=== PATIENT | female | born 1955 | race Caucasian/White ===

== ENCOUNTER → 2019-10-16 14:44 | Outpatient (CLI) | payer BC, SELFPAY ==
--- NOTE | ~2019-10-16 | MM_ITS ---
EXAMINATION: MM screening [facility] BI w kaylynn HISTORY: Screening mammogram TECHNIQUE: Craniocaudal and mediolateral oblique 3-D tomosynthesis images were obtained and synthetic 2-D images were generated. CAD analysis was submitted and interpreted. COMPARISON: Comparison to multiple prior studies sequentially, with oldest reviewed study dated 12/27. BREAST PARENCHYMAL COMPOSITION: There are scattered areas of fibroglandular density. FINDINGS: There is no evidence of suspicious mass, calcification, or architectural distortion to sugg est malignancy in either breast. There has been no suspicious interval change. IMPRESSION: 1. No mammographic evidence of malignancy. 2. Recommend routine screening mammography in one year. BI-RADS Category 1: Negative Reviewed, dictated and finalized at location A.
== END ==
PROVIDERS: PCP Nurse Practitioner Adult Health; Visit Provider Nurse Practitioner Adult Health
DX: Z12.31 Encounter for screening mammogram for malignant neoplasm of breast (principal)
CPT/HCPCS: 77063; 77067

== ENCOUNTER → 2019-11-07 09:28 | Outpatient (CLI) | payer BC, SELFPAY ==
--- NOTE | ~2019-11-07 | DEXA_ITS ---
Bone Density Report Name: Afia Villatoro Age: 64 Sex: Female Ethnicity: White Date of : 1955 Indication: postmenopausal osteoporosis; monitoring treatment; parental hip fracture; height loss; hysterectomy; Referring Provider: AL, ANUJA Study: Bone densitometry was performed. Exam Date: November 07, 2019 Accession number: [id number] Bone Density: Region BMD T-score Z-score Classification AP Spine (L1-L4) 0.766 -2.6 -0.8 Osteoporosis Femoral Neck (Left) 0.593 -2.3 -0.8 Osteopenia Total Hip (Left) 0.775 -1.4 -0.2 Osteopenia Femoral Neck (Right) 0.567 -2.5 -1.1 Osteoporosis Total Hip (Right) 0.678 -2.2 -1.0 Osteopenia Total Hip Mean 0.727 -1.8 -0.6 Osteopenia World Health Organization criteria for BMD impression classify patients as: Normal (T-score at or above -1.0), Osteopenia (T-score between -1.0 and -2.5), or Osteoporosis (T-score at or below -2.5). 10-year Fracture Risk: FRAX not reported because: Some T-score for Spine Total or Hip Total or Femoral Neck at or below -2.5 Treated for osteoporosis Previous Exams: Region Exam Age BMD T-score BMD Change BMD Change Date g/cm2 vs Baseline vs Previous AP Spine(L1-L4) 11/07/2019 64 0.766 -2.6 0.019 0.013 10/17/2017 62 0.753 -2.7 0.006 -0.008 10/13/2015 60 0.760 -2.6 0.014 0.000 05/17/2013 58 0.760 -2.6 0.013 -0.015 04/22/2011 56 0.775 -2.5 0.028* 0.092* 02/18/2010 55 0.683 -3.3 -0.063* -0.063* 04/19/2007 52 0.747 -2.7 Total Hip(Left) 11/07/2019 64 0.775 -1.4 -0.010 0.000 10/17/2017 62 0.775 -1.4 -0.010 -0.015 10/13/2015 60 0.789 -1.3 0.005 -0.010 05/17/2013 58 0.799 -1.2 0.015 -0.033* 04/22/2011 56 0.832 -0.9 0.047* 0.055* 02/18/2010 55 0.777 -1.3 -0.007 -0.007 04/19/2007 52 0.785 -1.3 Total Hip(Right) 11/07/2019 64 0.678 -2.2 -0.049* -0.056* 10/17/2017 62 0.734 -1.7 0.007 -0.010 10/13/2015 60 0.744 -1.6 0.017 -0.021 05/17/2013 58 0.765 -1.5 0.038* -0.006 04/22/2011 56 0.771 -1.4 0.044* 0.018 02/18/2010 55 0.753 -1.6 0.026 0.026 04/19/2007 52 0.727 -1.8 *Denotes significance at 95% confidence level, LSC for AP Spine = 0.022 g/cm2, LSC for Total Hip = 0.027 g/cm2 Clinical Informatio
== END ==
PROVIDERS: PCP Nurse Practitioner Adult Health; Visit Provider Nurse Practitioner Adult Health
DX: M81.0 Age-related osteoporosis without current pathological fracture (principal); M85.852 Other specified disorders of bone density and structure, left thigh; M85.851 Other specified disorders of bone density and structure, right thigh
CPT/HCPCS: 77080

== ENCOUNTER → 2021-01-08 12:16 | Outpatient (CLI) | payer MEDICARE, OTHER, SELFPAY ==
--- NOTE | ~2021-01-08 | MM_ITS ---
EXAMINATION: MM screening [facility] BI w kaylynn HISTORY: Screening TECHNIQUE: Craniocaudal and mediolateral oblique 3-D tomosynthesis images were obtained and synthetic 2-D images were generated. CAD analysis was submitted and interpreted. COMPARISON: Comparison to multiple prior studies sequentially, with oldest reviewed study dated 10/12. BREAST PARENCHYMAL COMPOSITION: There are scattered areas of fibroglandular density. FINDINGS: There is no evidence of suspicious mass, calcification, or architectural distortion to sugg est malignancy in either breast. There has been no suspicious interval change. IMPRESSION: 1. No mammographic evidence of malignancy. 2. Recommend routine screening mammography in one year. BI-RADS Category 1: Negative Reviewed, dictated and finalized at location A.
== END ==
PROVIDERS: PCP Nurse Practitioner Adult Health; Visit Provider Nurse Practitioner Adult Health
DX: Z12.31 Encounter for screening mammogram for malignant neoplasm of breast (principal)
CPT/HCPCS: 77063; 77067

== ENCOUNTER 2021-04-04 19:00 | Inpatient (IN) | payer MEDICARE, OTHER, SELFPAY ==
--- NOTE | ~2021-04-04 | XR_ITS ---
EXAMINATION: XR chest 2V DATE: 04/04/2021 19:24 INDICATION: Left-sided chest pain TECHNIQUE: PA and lateral views of the chest are obtained. COMPARISON: None available FINDINGS: There is mild atelectasis of the lung bases. There is no pleural effusion or pneumothorax. The cardiomediastinal silhouette is normal. There is moderate thoracic spondylosis. IMPRESSION: 1. No acute cardiopulmonary abnormality. Reviewed, dictated and finalized at location F. RUMENT STERILIZER
--- NOTE | ~2021-04-04 | CT_ITS ---
EXAMINATION: CTA chest PE abdomen DATE: 04/05/2021 14:35 SCOOP MACHINE OPERATOR INDICATION: Elevated d-dimer. Lower chest pain. TECHNIQUE: Computed tomographic angiography (CTA) of the chest and abdomen was performed with 100 mL Omnipaque-350 intravenous contrast. The dose-length product was 573.12 mGy-cm. Maximum intensity proj ection 3D-reconstructions of the aorta and other arteries were constructed by the technologist on a [employer] workstation. Automated exposure control and iterative reconstruction technique were employed. Automated exposure control and iterative reconstruction technique were employed. COMPARISON: CT dated 12/15/2012. FINDINGS: Chest: Cardiomegaly. Small left pleural effusion. There is atherosclerosis of the aorta wit hout evidence for aneurysm or dissection. Small hiatal hernia. Study is technically adequate without evidence for pulmonary embolism. There is patchy linear and airspace consolidation in the lower lobe s and lingula. No endobronchial lesions. No pneumothorax. ABDOMEN: The liver, spleen, pancreas, adrenal glands and kidneys are unremarkable. There is mild bila teral ureterectasis no free air or free fluid. There is mild urothelial enhancement. Cannot excluded ascending urinary tract infection. Gallbladder is present. There is accentuated thoracic kyphosis. IMPRESSION: 1. Patchy bibasilar infiltrates, suspicious for pneumonia versus atelectasis. 2: No evidence for pulmonary embolism. 3: Mild bilateral urothelial enhancement. Consider ascending urinary tract infection in the appropri ate clinical setting. Reviewed, dictated and finalized at location A. P MACHINE OPERATOR IMPRESSION: 1. Patchy bibasilar infiltrates, suspicious for pneumonia versus atelectasis. 2: No evidence for pulmonary embolism. 3: Mild bilateral urothelial enhancement. Consider ascending urinary tract inf ection in the appropriate clinical setting.
--- NOTE | ~2021-04-04 | US_ITS ---
EXAMINATION: US abdomen complete DATE: 04/06/2021 09:51 INDICATION: Right upper quadrant abdominal pain. Right posterior flank pain. TECHNIQUE: Multiple grayscale and Doppler ultrasound images of the abdomen were obtained. COMPARISON: CT 04/05/2021 FINDINGS: The visualized portions of the head and body of the pancreas are normal. The liver is jill l without focal lesion. No liver surface nodularity. There is normal flow in main portal vein. The ga llbladder is normal in size. No gallstones or gallbladder wall thickening. The common duct is normal and measures 2 mm. The kidneys are normal in size. The spleen is normal in size. There is a left pleu ral effusion. Abdominal aorta is normal in caliber. Inferior vena cava is normal. IMPRESSION: 1. Left pleural effusion. Reviewed, dictated and finalized at location B. E OPERATOR IMPRESSION: 1. Left pleural effusion.
--- NOTE | 2021-04-04 19:02 | ECG_ITS ---
Measurements Intervals [place] Rate: 59 P: 43 NE: 168 QRS: 28 QRSD: 86 T: 22 QT: 417 QTc: 414 Interpretive Statements SINUS BRADYCARDIA BORDERLINE ECG Electronically Signed On 04-05-2021 6:08:36 LEAD CASTER HELPER by Brandan Rodriguez D.O.
[2021-04-04 19:04] VITALS: BP 161/88; PULSE 69; RESP 18; TEMP 36.6; O2SAT 100
[2021-04-04 19:22] LABS: Basophils Percent Auto 0.5 % (0.2-1.2); Eosinophils Absolute Auto 0.2 K/mm3 (0-0.3); Eosinophils Percent Auto 2.6 % (0-4.4); Hematocrit 37.7 % (37.0-47.0); Hemoglobin 12.2 g/dL (12.0-15.0); Immature Granulocyte Absolute 0.02 K/mm3 (0.00-0.031); Immature Granulocyte Percent A 0.3 % (0-0.5); Lymphocytes Absolute Auto 2.41 K/mm3 (0.9-3.2); Mean Corpuscular HGB Conc 32.4 g/dl (32-36); Mean Corpuscular Hemoglobin 29.3 pg (26-34); Mean Corpuscular Volume 90.4 fl (80-100); Mean Platelet Volume 11.2 fl (7.4-10.4); Monocytes Absolute Auto 0.9 K/mm3 (0.1-0.6); Monocytes Percent Auto 11.6 % (2.6-8.5); Neutrophils Absolute Auto 3.8 K/mm3 (1.3-6.7); Platelet Count Result 236 k/mm3 (150-375); Red Blood Count 4.17 M/mm3 (4.2-5.4); Red Cell Distribution Width 12.4 % (11.5-14.5); White Blood Count 7.3 K/mm3 (4.5-10.0)
[2021-04-04 19:30] LABS: INR 2.4; Prothrombin Time 25.8 Seconds (11.1-14.7)
[2021-04-04 19:31] LABS: Alanine Aminotransferase 18 U/L (4-35); Albumin Level 4.8 g/dL (3.5-5.1); Alkaline Phosphatase 107 U/L (38-126); Anion Gap 9 mmol/L (8-16); Aspartate Amino Transferase 30 U/L (14-36); Bilirubin,Total 0.3 mg/dL (0.2-1.3); Blood Urea Nitrogen 13 mg/dL (7-17); Calcium 9.8 mg/dL (8.4-10.2); Carbon Dioxide 27 mmol/L (22-30); Chloride 103 mmol/L (98-107); Estimated CRCL calculation 64 ml/min; Estimated Glomerular Filt Rate > 60; Glucose 99 mg/dL (65-110); Lipase 69 U/L (23-300); Partial Thromboplastin Time 26.9 SECONDS (22.3-36.8); Potassium 4.1 mmol/L (3.4-5.0); Sodium 139 mmol/L (137-145)
[2021-04-04 19:42] LABS: Troponin I < 0.012 ng/mL (0.000-0.034)
--- NOTE | 2021-04-04 21:04 | ED.CHESTPAIN ---
HPI - Chest Pain General Chief Complaint: Chest Pain Stated Complaint: chest pain Time Seen by Provider: 04/04/21 20:53 Source: patient Mode of arrival: ambulatory Limitations: no limitations History of Present Illness HPI narrative: Patient is a 66-year-old female complaining of chest pain, left chest, pressure, 7 out of 10, radiating to left arm started tonight. Patient states that she had a similar episode 3 days ago but resolved and she did not go to the emergency room. Patient denies any shortness of breath, abdominal pain, nausea, vomiting, diaphoresis, fever or chills. Related Data Home Medications Medication Instructions Recorded Confirmed escitalopram oxalate 10 mg PO DAILY 03/28/19 07/30/20 zolpidem 5 mg PO HS PRN 03/28/19 07/30/20 ibandronate mg PO 04/04/21 04/04/21 Allergies Allergy/AdvReac Type Severity Reaction Status Date / Time Sulfa (Sulfonamide Allergy Unknown Verified 04/04/21 19:07 Antibiotics) Review of Systems Review of Systems: All systems reviewed & are unremarkable except as noted in HPI and below Constitutional: Constitutional: Denies body ache(s), Denies chills, Denies excessive sweating, Denies fatigue, Denies fever(s), Denies headache(s), Denies lethargy, Denies malaise, Denies weakness and Denies weight loss Eyes: Eyes: Denies blurry vision, Denies change in vision and Denies loss of vision ENT: Denies dizziness, Denies ear discharge, Denies headache(s), Denies lip swelling, Denies epistaxis, Denies nasal congestion, Denies neck pain, Denies throat swelling and Denies tongue swelling Cardiovascular: Cardiovascular: Denies chest pain, Denies chest pain at rest, Denies chest pain with activity, Denies diaphoresis, Denies rapid heart rate, Denies edema, Denies irregular heart rhythm, Denies lightheadedness, Denies palpitations, Denies dyspnea and Denies dyspnea on exertion Respiratory: Respiratory: Denies chest congestion, Denies cough, Denies hemoptysis, Denies dyspnea and Denies dyspnea on exertion Gastrointestinal: Gastrointestinal: Denies abdominal pain, Denies melena, Denies hematochezia, Denies diarrhea, Denies nausea, Denies vomiting and Denies hematemesis Musculoskeletal: Musculoskeletal: Denies abnormal gait, Denies deformity, Denies joint swelling, Denies limited range of motion, Denies neck pain and Denies numbness Neurologic: Denies Abnormal speech present, Denies abnormal gait, Denies confusion, Denies dizziness, Denies headache(s), Denies focal weakness, Denies loss of vision, Denies numbness, Denies Other visual disturbances, Denies Sensory deficit (Neuro) and Denies weakness Psychiatric: Psychiatric: Denies confusion, Denies depression, Denies auditory hallucinations, Denies homicidal ideation and Denies suicidal ideation Endocrine: Endocrine: Denies cold intolerance, Denies excessive sweating, Denies fatigue, Denies heat intolerance and Denies palpitations Hematologic/Lymphatic: Hematologic/Lymphatic: Denies easy bleeding and Denies easy bruising Allergic/Immunologic: Allergic/Immunologic: Denies lip swelling, Denies throat swelling and Denies tongue swelling PMFSH Past Medical History Medical History Degenerative disc disease HTN (hypertension) Kidney stone Right knee dislocation Shingles Surgical History Surgical History H/O right knee surgery Right knee reconstruction in November 2018 H/O: hysterectomy History of extraction of renal calculus Hx of tonsillectomy S/P ligament repair Right ACL, MCL, PCL Family History Family History Father Diabetes mellitus Pancreatic cancer Mother Hypertension Sibling Diabetes mellitus Social History Social History Social History: Patient lives with her . She is a full code. No tobacco or
[2021-04-04 21:10] VITALS: BP 127/67; PULSE 70; RESP 16; O2SAT 100
[2021-04-04] MEDS: ASPIRIN 81 MG CHEWABLE TABLET 324 MG PO (21:14)
[2021-04-04 22:28] LABS: Troponin I < 0.012 ng/mL (0.000-0.034)
[2021-04-04 22:35] VITALS: BP 138/68; PULSE 62; RESP 20; O2SAT 98
[2021-04-04] MEDS: NITROGLYCERIN OINTMENT 1 INCH DOSE TRANSDERM (23:10)
[2021-04-04 23:11] VITALS: BP 125/69; PULSE 67; RESP 16; O2SAT 98
[2021-04-04 23:31] VITALS: BP 135/66; PULSE 58; RESP 12; O2SAT 98
--- NOTE | 2021-04-04 23:40 | PM.IMHP ---
H&P: HPI History of Present Illness Date/Time: 04/04/21 23:40 Chief Complaint: Chest pain. Narrative: This is a 66-year-old female with past medical history significant for hypertension, osteoporosis, depression. Patient presents to the emergency room due to pain in the chest precordial with radiation to shoulder and arm according to patient this has been going on for several days however today patient had worsening of pain with inspiration and rib cage pain as well. Patient denies chest pain with activity at rest or exertion, no dizziness, no lightheadedness ,no near syncope, no syncope, no shortness of breath, no cough ,no sputum production, no fevers ,no rigors, no chills ,no calf pain, no leg swelling ,no palpitations. According to patient now pain is more localized to the left ribcage at the level of ribs 9 stent with an 11 and is a shooting pain. Preliminary workup has been essentially nonrevealing. Review of Systems Review of Systems: Precordial area shoulder and arm pain she did pain left ribcage at the level of ribs 9th,10th,11th Constitutional: Constitutional: Denies chills, Denies excessive sweating, Denies fatigue, Denies fever(s), Denies lethargy, Denies malaise, Denies night sweats, Denies poor appetite and Denies weakness Eyes: Eyes: Denies change in vision ENT: Denies dental pain, Denies dysphagia, Denies vertigo, Denies dizziness, Denies otalgia, Denies lip swelling, Denies nasal congestion, Denies nasal discharge, Denies nasal obstruction and Denies odynophagia Cardiovascular: Cardiovascular: Reports chest pain, Denies chest pain with activity, Denies pedal edema, Denies irregular heart rhythm, Denies leg edema, Denies lightheadedness, Denies radiating jaw, neck or arm pain and Denies palpitations Respiratory: Respiratory: Denies chest congestion, Denies cough and Denies pain with cough Gastrointestinal: Gastrointestinal: Denies abdominal pain, Denies belching, Denies GI cramping, Denies dyspepsia, Denies heartburn, Denies diarrhea, Denies nausea and Denies vomiting Genitourinary: Genitourinary: Denies dysuria Musculoskeletal: Musculoskeletal: Reports arthralgias Comments: Ribcage pain Integumentary/Breasts: Skin/Breast: Denies rash Neurologic: Denies vertigo, Denies dizziness, Denies focal weakness and Denies Sensory deficit (Neuro) Psychiatric: Psychiatric: Reports no additional psychiatric complaints and Reports as per HPI Endocrine: Endocrine: Denies cold intolerance, Denies excessive sweating, Denies heat intolerance, Denies polyphagia, Denies polydipsia and Denies palpitations Hematologic/Lymphatic: Hematologic/Lymphatic: Reports no additional hematologic/lymphatic complaints and Reports as per HPI Allergic/Immunologic: Allergic/Immunologic: Reports no additional allergic/immunologic complaints and Reports as per HPI PMFSH Past Medical History Medical History Degenerative disc disease HTN (hypertension) Kidney stone Right knee dislocation Shingles Surgical History Surgical History H/O right knee surgery Right knee reconstruction in November 2018 H/O: hysterectomy History of extraction of renal calculus Hx of tonsillectomy S/P ligament repair Right ACL, MCL, PCL Family History Family History Father Diabetes mellitus Pancreatic cancer Mother Hypertension Sibling Diabetes mellitus Social History Social History Social History: Patient lives with her . She is a full code. No tobacco or alcohol use. Her is her POA. She does have 3 adult daughters. Smoking status: Never smoker Alcohol intake: never Substance use: never Substance use type: does not use Gender identity (if verbalized by the patient): Female Spiritual care concerns: No Agree to b
--- NOTE | 2021-04-04 23:49 | PC.NURSE ---
Report given to IMU, room not ready. Will call when clean.
[2021-04-05] VITALS (16 sets, daily range): BP systolic 105–131; BP diastolic 60–68; PULSE 57–88; RESP 12–20; TEMP 35.8–36.9; O2SAT 96–100; BMI 29.4
--- NOTE | 2021-04-05 00:15 | PC.NURSE ---
This patient, Afia Villatoro, was admitted to IMU Room 205-01. Patient/family oriented to hospital policies and general routines including ID bracelet, bed and alarms, visiting hours, pain management, procedures, bathroom and other care routines, personal items, smoking policy, room service/diet, and visiting hours. Information on how to activate the Rapid Response Team has been discussed. Patient/Family are encouraged to report perceived risks to care and to ask questions if they do not understand what they are told or what they should do.
[2021-04-05] MEDS: ESCITALOPRAM OXALATE 10 MG TABLET PO ×2 (01:22→21:12)
[2021-04-05] MEDS: ZOLPIDEM TARTRATE (*CRX) 5 MG TABLET PO (01:22)
[2021-04-05] MEDS: amLODIPine BESYLATE 5 MG TABLET 10 MG PO ×2 (01:23→21:10)
[2021-04-05 01:31] LABS: Troponin I < 0.012 ng/mL (0.000-0.034)
[2021-04-05] MEDS: carBAMazepine 200 MG TABLET PO (03:35)
[2021-04-05] MEDS: traMADol HCL (*CRX) 50 MG TABLET PO (04:36)
[2021-04-05] MEDS: lisinopriL 20 MG TABLET PO (08:04)
--- NOTE | 2021-04-05 10:48 | PM.IMPN ---
Progress Note: A&P Assessment and Plan (1) Chest pain: Qualifiers: Chest pain type: unspecified Qualified Code(s): R07.9 - Chest pain, unspecified Code(s): R07.9 - Chest pain, unspecified Status: Acute Assessment and Plan: Transferred from IMU to cardiac tele today due to stability. Atypical chest pain improving at times. Serial troponins Lexiscan stress test on Tuesday Supportive care pain and discomfort was at admission, the lower left quadrant anteriorly and upper left part posteriorly of her back. no pain with deep breathing or movement. ONLY with palpation, mild chest wall pain to LLQ/LUQ anteriorly Lexiscan already scheduled for tomorrow. concerned about her 17 days of travel on April 28. unable to see primary care physician. Consulted mail clerk bills Checking lipase, D-dimer (will get CT scan if elevated), BNP, TSH, lipid panel. Her Troponin levels x 3 are WNL. Checking Abdominal US. (2) Chronic diarrhea: Code(s): K52.9 - Noninfective gastroenteritis and colitis, unspecified Status: Acute Assessment and Plan: Supportive care None today. Chronic. Not a concern at this time and denies constipation too. (3) Hypokalemia: Code(s): E87.6 - Hypokalemia Status: Acute Assessment and Plan: Replace as needed K 4.1 today Cardiac Telemetry (4) HZV (herpes zoster virus) post herpetic neuralgia: Code(s): B02.29 - Other postherpetic nervous system involvement Status: Acute Assessment and Plan: No signs of herpes zoster at this time, no red rashes, no itching, no burning or tingling to her chest abdomen or back. She states that her herpes zoster episode in the past was very mild and did not cause her much pain. She does not appear to be have post herpetic pain syndrome at this time. Patient given Tegretol 200 mg p.o. but chest wall pain returned. Patient with history of shingles Describes pain inferior left ribcage Chest x-ray reviewed - no acute findings, but CT scan today showed pneumonia. (5) Pneumonia: Code(s): J18.9 - Pneumonia, unspecified organism Status: Acute Assessment and Plan: Likely early pneumonia. May be covid. Checking for COVID now to rule in /out. CT PE scan done today. No PE. 1. Patchy bibasilar infiltrates, suspicious for pneumonia versus atelectasis. Started on Levaquin for CAP. Cross covers for possible UTI too. incentive spirometer albuterol inhaler (6) UTI (urinary tract infection): Code(s): N39.0 - Urinary tract infection, site not specified Status: Acute Assessment and Plan: Possible UTI. CT scan done today, showed Mild bilateral urothelial enhancement. Consider ascending urinary tract infection in the appropriate clinical setting. adequately hydrated. Abd. US ordered. UA and Urine culture ordered. Was started on Levaquin for possible CAP - may cover UTI as well. Subjective Date/time seen: 04/05/21 10:48 Afia was feeling better this morning when I went to examine her. She denied any chest pain or pressure, denied any arm pain or pressure or tingling. She did show me where her pain and discomfort was at admission, the lower left quadrant anteriorly and upper left part posteriorly of her back. She does not have pain with deep breathing or movement. With palpation, no pain posteriorly or on her back; but she does have mild chest wall pain to LLQ/LUQ anteriorly to palpation during examination. She does want a full workup and did want to stay for the Lexiscan that was already scheduled for tomorrow. She is starting 17 days of travel on April 28. She has tried to get into her primary care physician and is unable to for a few months. Consulted mail clerk bills tomorrow. Checking lipase, D-dimer (will get CT scan if elevated), BNP, TSH, lipid panel. Her Troponin levels x 3 are WNL. She does not have any signs of herpes zoster at this time, no red rashes, no itching,
--- NOTE | 2021-04-05 11:26 | ECG_ITS ---
Measurements Intervals [place] Rate: 61 P: 30 CT: 174 QRS: 1 QRSD: 94 T: -8 QT: 411 QTc: 416 Interpretive Statements SINUS RHYTHM VOLTAGE CRITERIA FOR LVH BORDERLINE ST-T WAVE ABNORMALITY- INFERIOR LEADS BASELINE ARTIFACT- I, II, AVR, V5 BORDERLINE ECG Electronically Signed On 04-05-2021 16:02:50 STAPLE LASTER by Brandan Rodriguez D.O.
[2021-04-05 12:38] LABS: Cholesterol 225 mg/dL (0-200); HDL Direct 56 mg/dL; Lipase 52 U/L (23-300); Triglycerides 143 mg/dL (<150)
[2021-04-05 12:45] LABS: D Dimer 0.51 ug/mL (<0.48)
[2021-04-05 12:49] LABS: LDL Cholesterol Direct 119 mg/dL; NT Pro B Type Natriuretic Pept 64 pg/mL (5-100)
[2021-04-05 12:56] LABS: Hemoglobin A1C 5.6 % (<5.7)
[2021-04-05] MEDS: HYDROcodone/acetaminophen (*CRX) 5-325 MG TABLET 1 TAB PO (17:26)
[2021-04-05 17:36] LABS: SARS-CoV-2 RNA PCR Positive
[2021-04-05] MEDS: ONDANSETRON INJ 4 MG/2 ML VIAL IV PUSH (19:02)
[2021-04-06] VITALS (14 sets, daily range): BP systolic 110–135; BP diastolic 58–79; PULSE 61–77; RESP 16–18; TEMP 36–36.7; O2SAT 98–100
[2021-04-06] MEDS: ALBUTEROL SULFATE (*SP) AEROSOL 1 PUFF 2 PUFF INHALATION (02:20)
[2021-04-06 05:19] LABS: Hematocrit 32.9 % (37.0-47.0); Hemoglobin 10.9 g/dL (12.0-15.0); Mean Corpuscular HGB Conc 33.1 g/dl (32-36); Mean Corpuscular Hemoglobin 29.7 pg (26-34); Mean Corpuscular Volume 89.6 fl (80-100); Mean Platelet Volume 11.2 fl (7.4-10.4); Platelet Count Result 210 k/mm3 (150-375); Red Blood Count 3.67 M/mm3 (4.2-5.4); Red Cell Distribution Width 12.2 % (11.5-14.5); White Blood Count 7.7 K/mm3 (4.5-10.0)
[2021-04-06 05:33] LABS: Anion Gap 9 mmol/L (8-16); Blood Urea Nitrogen 11 mg/dL (7-17); Calcium 9.3 mg/dL (8.4-10.2); Carbon Dioxide 26 mmol/L (22-30); Chloride 101 mmol/L (98-107); Estimated CRCL calculation 56 ml/min; Estimated Glomerular Filt Rate > 60; Glucose 110 mg/dL (65-110); Sodium 136 mmol/L (137-145)
--- NOTE | 2021-04-06 09:42 | PM.CNCAR ---
Assessment and Plan Additional Plan 66-year-old woman with atypical sounding chest pain not very suspicious for myocardial ischemia. Acute coronary syndrome has been ruled out over the weekend. In the meantime she has tested positive for coronavirus. At this point it would be imprudent to conduct a stress test on her and exposed additional hospital employees to Coronavirus needlessly. I would recommend discharge of this patient and she should quarantine for her COVID infection. She is stable and breathing room air and from that perspective I do not think needs to remain hospitalized. Her PCP can follow up with her regarding her blood pressure and further symptomatology and consider outpatient stress testing if there remains any concern regarding ischemic heart disease. Marquis Morales MD [facility] History of Present Illness History of Present Illness Consult date/time: 04/06/21 09:42 Consult reason: chest pain Reason For Visit: Chest Pain Narrative: This is a 66-year-old woman I have been consulted to see by the hospitalist because of some chest pain which resulted in her being admitted to the hospital over the weekend. She has been having symptoms of chest pain off and on for something like 5 or 6 days before coming into the hospital. She describes episodes of pain starting from the left posterior thoracic region radiating around to the anterior left inframammary location off and on. The symptoms were worsened over the weekend and so Tuesday evening she came into the emergency room for evaluation. In the emergency department her electrocardiogram was found to be normal as were her troponin levels and she was admitted to the hospital to rule out an acute coronary syndrome. She does not report the symptoms to be occurring with physical activity or exertion of any kind she has noticed that if she takes a deep breath that tends to get worse. She was not coughing producing any sputum having any fever or chills. Following admission her electrocardiograms remain normal. Her troponin levels were negative. Apparently because of a history of hypertension as a risk factor a Lexiscan nuclear stress test was ordered and set up for this morning. In the meantime she has tested positive for COVID. She had a CT scan of the chest yesterday which demonstrated some mild findings of lower lobe pneumonia. She is comfortable at this time denies any other complaints in no distress and breathing room air. Review of Systems Constitutional: Constitutional: Reports no additional constitutional complaints Eyes: Eyes: Reports no additional eye complaints ENT: Reports system reviewed and no additional complaints, except as documented Cardiovascular: Cardiovascular: Reports as per HPI Respiratory: Respiratory: Reports as per HPI Gastrointestinal: Gastrointestinal: Reports no additional gastrointestinal complaints Musculoskeletal: Musculoskeletal: Reports no additional musculoskeletal complaints Integumentary/Breasts: Skin/Breast: Reports system reviewed and no additional complaints, except as docu Neurologic: Reports system reviewed and no additional complaints, except as documented Endocrine: Endocrine: Reports no additional endocrine complaints Hematologic/Lymphatic: Hematologic/Lymphatic: Reports no additional hematologic/lymphatic complaints Allergic/Immunologic: Allergic/Immunologic: Reports no additional allergic/immunologic complaints PMFSH Past Medical History Medical History Degenerative disc disease HTN (hypertension) Kidney stone Right knee dislocation Shingles Surgical History Surgical History H/O right knee surgery Right knee reconstruction in November 2018 H/O: hysterectomy History of extraction of renal calculus Hx of tonsillectomy S/P ligament repair Right ACL, MCL, PCL Family History Family History (Reviewed
[2021-04-06] MEDS: lisinopriL 20 MG TABLET PO (10:10)
[2021-04-06] MEDS: ENOXAPARIN 40 MG/0.4 ML SYRINGE SUB-Q (10:11)
[2021-04-06] MEDS: POTASSIUM CHLORIDE INJ 40 MEQ in SODIUM CHLORIDE 0.9% IV 500 ML 130 MEQ IVPB (10:11)
--- NOTE | 2021-04-06 10:48 | PCRCNOTE ---
Window of time for administration has passed. See next scheduled administration.
[2021-04-06] MEDS: ALBUTEROL SULFATE (*SP) INHALER 2 PUFF INHALATION ×2 (13:58→21:25)
[2021-04-06] MEDS: ACETAMINOPHEN 500 MG TABLET 1000 MG PO (14:34)
[2021-04-06 16:18] LABS: Potassium 3.6 mmol/L (3.4-5.0)
--- NOTE | 2021-04-06 17:14 | PM.IMPN ---
Progress Note: A&P Assessment and Plan (1) Chest pain: Qualifiers: Chest pain type: unspecified Qualified Code(s): R07.9 - Chest pain, unspecified Code(s): R07.9 - Chest pain, unspecified Status: Acute Assessment and Plan: Transferred from IMU to cardiac tele today due to stability. Atypical chest pain improving at times. Serial troponins Lexiscan stress test on Tuesday Supportive care pain and discomfort was at admission, the lower left quadrant anteriorly and upper left part posteriorly of her back. no pain with deep breathing or movement. ONLY with palpation, mild chest wall pain to LLQ/LUQ anteriorly Lexiscan already scheduled for tomorrow. concerned about her 17 days of travel on April 28. unable to see primary care physician. 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 Her Troponin levels x 3 are WNL. Checking Abdominal US. 04/06/2021 interval history: patient presented with complaint of left-sided chest 3 sets of cardiac enzymes are negative, stress test is canceled as patient is positive for COVID-19, CTA of the chest is negative for pulmonary emboli however concerning for patchy infiltrate and pneumonia, patient being treated with levofloxacin, patient is positive for COVID-19 however not requiring any oxygen and does not have a fever, patient with hypokalemia will supplement and monitor, repeat chest x-ray to further evaluate pneumonia and further recommendation to follow. (2) Chronic diarrhea: Code(s): K52.9 - Noninfective gastroenteritis and colitis, unspecified Status: Acute Assessment and Plan: Supportive care None today. Chronic. Not a concern at this time and denies constipation too. (3) Hypokalemia: Code(s): E87.6 - Hypokalemia Status: Acute Assessment and Plan: Replace as needed K 4.1 today Cardiac Telemetry (4) HZV (herpes zoster virus) post herpetic neuralgia: Code(s): B02.29 - Other postherpetic nervous system involvement Status: Acute Assessment and Plan: No signs of herpes zoster at this time, no red rashes, no itching, no burning or tingling to her chest abdomen or back. She states that her herpes zoster episode in the past was very mild and did not cause her much pain. She does not appear to be have post herpetic pain syndrome at this time. Patient given Tegretol 200 mg p.o. but chest wall pain returned. Patient with history of shingles Describes pain inferior left ribcage Chest x-ray reviewed - no acute findings, but CT scan today showed pneumonia. (5) Pneumonia: Code(s): J18.9 - Pneumonia, unspecified organism Status: Acute Assessment and Plan: Likely early pneumonia. May be covid. Checking for COVID now to rule in /out. CT PE scan done today. No PE. 1. Patchy bibasilar infiltrates, suspicious for pneumonia versus atelectasis. Started on Levaquin for CAP. Cross covers for possible UTI too. incentive spirometer albuterol inhaler (6) UTI (urinary tract infection): Code(s): N39.0 - Urinary tract infection, site not specified Status: Acute Assessment and Plan: Possible UTI. CT scan done today, showed Mild bilateral urothelial enhancement. Consider ascending urinary tract infection in the appropriate clinical setting. adequately hydrated. Abd. US ordered. UA and Urine culture ordered. Was started on Levaquin for possible CAP - may cover UTI as well. Subjective Date/time seen: 04/06/21 17:14 HPI: Narrative: This is a 66-year-old female with past medical history significant for hypertension, osteoporosis, depression. Patient presents to the emergency room due to pain in the chest precordial with radiation to shoulder and arm according to patient this has been going on for several days however today patient had worsening of pain with inspiration and rib cage pain as well. Patient denies chest pain with
[2021-04-06] MEDS: POTASSIUM CHLORIDE 20 MEQ TABLET 40 MEQ PO (18:05)
--- OUTSIDE RECORDS SUMMARY | 2021-04-06 19:33 | XMS_ITS ---
:1955 Author Care Team Providers Name Role Phone Naima Velarde Primary Care Provider Unavailable Allergies Code Code System Name Reaction Severity Status Onset Sulfa Other ? Active ? (Sulfonamid e Antibiotics ) Medications Name Status Start Date Stop Date ? ? amlodipine 10 mg tablet Active ? Not avai lable amoxicillin 875 mg-potassium clavulanate 125 mg tablet Completed ? 08/15/2019 TK 1 T PO Q 12 H FOR 10 DAYS aspirin 325 mg tablet,delayed release Completed ? 04/22/2020 azithromycin 250 mg tablet Active ? Not a vailable TAKE 2 TABLETS BY MOUTH ON DAY 1, AND T HEN TAKE 1 TABLET BY MOUTH ONCE A DAY ON DAY 2 THROUGH DAY [address] - ER 3 mg capsule,delayed,extended release Active ? Not available TAKE 3 CAPSULES BY MOUTH ONCE DAILY . A FTER 3 WEEKS TRY TAPERING DOWN TO 2 A DAY bupropion HCl XL 300 mg 24 hr tablet, extended release Unknown ? Not available Take 1 tablet every day by oral route for 30 days. buspirone 10 mg tablet Completed ? 0 TK 1 T PO BID PRN cephalexin 500 mg capsule Completed ? 2020 TAKE 1 CAPSULE BY MOUTH TWICE DAILY FOR 7 DAYS Cholestyramine Light 4 gram oral powder Completed ? 10/14/2020 ciprofloxacin 500 mg tablet Completed ? 11/26 TK 1 T PO Q 12 H FOR 5 DAYS cyclobenzaprine 10 mg tablet Completed ? diazepam 5 mg tablet C
--- OUTSIDE RECORDS SUMMARY | 2021-04-06 19:33 | XMS_ITS ---
:1955 Author Care Team Providers Name Role Phone KLARISSA CORDERO MD OTHER [phone] Allergies Code Code System Name Reaction Severity [...] 325 mg tablet,delayed release Completed ? 04/22/[address] - ER 3 mg capsule,delayed,extended release Complet ed ? 10/18/2019 TK 3 CS PO QD bupropion HCl XL 300 mg 24 hr tablet, extended release Unknown ? Not available Take 1 tablet every day by oral route for 30 days. buspirone 10 mg tablet Completed ? 0 TK 1 T PO BID PRN Cholestyramine Light 4 gram oral powder Active ? Not available ciprofloxacin 500 mg tablet Completed ? 11/26 TK 1 T PO Q 12 H FOR 5 DAYS cyclobenzaprine 10 mg tablet Completed ? diazepam 5 mg tablet Completed ? 11/23/2018 DOK 100 mg capsule Completed ? 08/15/2019 TK 1 CAPSULE PO BID enoxaparin 40 mg/0.4 mL subcutaneous syringe Completed ? 11/23/2018 INJECT 0.4 ML SUBCUTANEOUSLY ONCE DAILY FOR 35 DAYS escitalopram 10 mg tablet Active ? Not av ailable TAKE 1 TABLET BY MOUTH ONCE DAILY
[2021-04-06] MEDS: amLODIPine BESYLATE 5 MG TABLET 10 MG PO (20:35)
[2021-04-06] MEDS: ESCITALOPRAM OXALATE 10 MG TABLET PO (20:35)
[2021-04-07] VITALS (9 sets, daily range): BP systolic 109–113; BP diastolic 57–61; PULSE 58–84; RESP 18–20; TEMP 36.4–36.5; O2SAT 96–100
[2021-04-07] MEDS: HYDROcodone/acetaminophen (*CRX) 5-325 MG TABLET 1 TAB PO (00:45)
[2021-04-07] MEDS: ALBUTEROL SULFATE (*SP) INHALER 2 PUFF INHALATION ×2 (02:42→08:26)
[2021-04-07 05:40] LABS: Anion Gap 9 mmol/L (8-16); Blood Urea Nitrogen 10 mg/dL (7-17); Calcium 9.1 mg/dL (8.4-10.2); Carbon Dioxide 25 mmol/L (22-30); Chloride 106 mmol/L (98-107); Estimated CRCL calculation 57 ml/min; Estimated Glomerular Filt Rate > 60; Glucose 94 mg/dL (65-110); Potassium 4.2 mmol/L (3.4-5.0); Sodium 140 mmol/L (137-145)
[2021-04-07 05:47] LABS: Hematocrit 33.9 % (37.0-47.0); Hemoglobin 10.7 g/dL (12.0-15.0); Mean Corpuscular HGB Conc 31.6 g/dl (32-36); Mean Corpuscular Hemoglobin 29.1 pg (26-34); Mean Corpuscular Volume 92.1 fl (80-100); Mean Platelet Volume 11.4 fl (7.4-10.4); Platelet Count Result 198 k/mm3 (150-375); Red Blood Count 3.68 M/mm3 (4.2-5.4); Red Cell Distribution Width 12.3 % (11.5-14.5); White Blood Count 6.6 K/mm3 (4.5-10.0)
[2021-04-07 05:51] LABS: Magnesium 1.8 mg/dL (1.6-2.3)
[2021-04-07] MEDS: ENOXAPARIN 40 MG/0.4 ML SYRINGE SUB-Q (09:00)
[2021-04-07] MEDS: lisinopriL 20 MG TABLET PO (09:00)
--- NOTE | 2021-04-07 10:02 | PM.DS ---
DS: Admitting Diagnosis Discharge Date 04/07/21 Admitting Diagnosis (1) Chest pain: (2) Chronic diarrhea: (3) Hypokalemia: (4) HZV (herpes zoster virus) post herpetic neuralgia: DS: Discharge Diagnosis Discharge Diagnosis (1) Pneumonia: Code(s): J18.9 - Pneumonia, unspecified organism Status: Acute (2) HZV (herpes zoster virus) post herpetic neuralgia: Code(s): B02.29 - Other postherpetic nervous system involvement Status: Acute (3) Chest pain: Qualifiers: Chest pain type: unspecified Qualified Code(s): R07.9 - Chest pain, unspecified Code(s): R07.9 - Chest pain, unspecified Status: Acute (4) Chronic diarrhea: Code(s): K52.9 - Noninfective gastroenteritis and colitis, unspecified Status: Acute (5) Hypokalemia: Code(s): E87.6 - Hypokalemia Status: Acute (6) Hypertensive urgency: Code(s): I16.0 - Hypertensive urgency Status: Acute DS: Summary Hospital Course Reason for hospitalization: Chief Complaint: Chest pain. Hospital Course: Narrative: This is a 66-year-old female Presents to the emergency room with atypical sounding chest pain and was admitted for acute chest pain rule out ACS. Cardiology was consulted and agreed that chest pain did not seem to be of cardiac origin. She was noted to be positive for coronavirus although mildly symptomatic and she was discharged home in stable condition with indications to follow up with Cardiology after recovery from her COVID for outpatient stress test. During hospitalization cardiology reviewed antihypertensive regimen and recommended management be deferred to her primary care physician after recovery of her acute illness. Pt without respiratory symptoms, fever, chills, cough, or leukocytosis. imaging reported lower lobe PNA although labs and clinical findings inconsistent. Levaquin transmitted to pharmacy, to be taken if pt develops respiratory symptoms. Status at Discharge Functional status at discharge: independent ambulation Overall status at discharge: patient is back to baseline Time Spent with Patient Time attestation: Total time spent providing and/or coordinating discharge services: Time spent: Less than 30 minutes Exam Narrative: GEN: NAD, AAOx3, cooperative HEENT: NCAT, MMM, EOMI Neck: no JVD Lungs: no resp distress symmetric chest rise aerating well Ext: moves all, no cyanosis, no clubbing, no edema Neuro: normal cognition, CN intact Psych: mood and affect congruent DS: Data Data Completed and Pending Labs on day of discharge: Labs from last 24 hours 04/07/21 04/07/21 04/07/21 04:52 04:52 04:52 WBC 6.6 RBC 3.68 L Hgb 10.7 L Hct 33.9 L MCV 92.1 MCH 29.1 MCHC 31.6 L RDW 12.3 Plt Count 198 MPV 11.4 H Sodium 140 Potassium 4.2 Chloride 106 Carbon Dioxide 25 Anion Gap 9 BUN 10 Creatinine 0.80 Estim Creat Clear Calc 57 Estimated GFR > 60 Glucose 94 Calcium 9.1 Magnesium 1.8 04/06/21 15:58 WBC RBC Hgb Hct MCV MCH MCHC RDW Plt Count MPV Sodium Potassium 3.6 Chloride Carbon Dioxide Anion Gap BUN Creatinine Estim Creat Clear Calc Estimated GFR Glucose Calcium Magnesium Discharge Plan Discharge Attending physician on discharge: Nicole Reese Consulting providers: Marquis Morales ; Fam Lima ; Galen Rome ; Brandan Rodriguez ; Olimpia Roberts ; Fidel Hernandez V. Discharging Clinician: Nicole Reese Anticipated Discharge Date/Time: 04/07/21 09:50 Patient Disposition: Home, Self-Care Activity: as tolerated Diet: heart healthy Discharge Instructions: isolated for 10 days Patient Instructions: Antibiotic Form Stand Alone Forms: General Discharge Information Follow-up/Referrals: Manuel Goodman MD [Physician] - Aragon,ALMA Mcnamara [Primary Care Provider] - Discharge Medications: New lisinop
--- OUTSIDE RECORDS SUMMARY | 2021-04-07 10:26 | XMS_ITS ---
:1955 Author Care Team Providers Name Role Phone KLARISSA CORDERO MD OTHER [phone] Allergies Code Code System Name Reaction Severity [...]
--- OUTSIDE RECORDS SUMMARY | 2021-04-07 10:27 | XMS_ITS ---
:1955 Author Care Team Providers Name Role Phone KLARISSA CORDERO MD OTHER [phone] Allergies Code Code System Name Reaction Severity [...]
== END 2021-04-07 11:59 | disposition home or self-care (01) | DRG 177 ==
LOC: ANHED 22:41 → ANHIMU 04-05 08:17
PROVIDERS: Nurse Practitioner; Admitting Provider Internal Medicine; Emergency Provider Emergency Medicine; PCP Nurse Practitioner Adult Health; Visit Provider Family Medicine
DX: U07.1 COVID-19 (principal); J12.82 Pneumonia due to coronavirus disease 2019; B02.29 Other postherpetic nervous system involvement; N39.0 Urinary tract infection, site not specified; K52.9 Noninfective gastroenteritis and colitis, unspecified; R07.89 Other chest pain; E87.6 Hypokalemia; I16.0 Hypertensive urgency; M81.0 Age-related osteoporosis without current pathological fracture; F32.A Depression, unspecified; Z90.710 Acquired absence of both cervix and uterus
CPT/HCPCS: 36415; 71046; 71275; 74160; 76700; 80048; 80053; 80061; 83036; 83690; 83735; 83880; 84132; 84443; 84484; 85025; 85027; 85380; 85610; 85730; 93005; 94640; 96365; 96367; 96372; 96375; 99285; A9270; C9803; G0378; J1650; J1956; J2405; J3480; J7040; Q9967; U0003; U0005

== ENCOUNTER 2022-10-07 00:55 | Day surgery (SDC) | payer MEDICARE, OTHER, SELFPAY ==
[2022-09-03 12:31] VITALS: BMI 29.4
[2022-10-07 08:40] VITALS: BP 122/74; PULSE 100; RESP 18; TEMP 36.6; O2SAT 100; BMI 26.4
[2022-10-07] MEDS: LACTATED RINGERS 1,000 ML 150 ML IV CONT (09:01)
--- NOTE | 2022-10-07 09:18 | WPDANESEPPF ---
Anes - Initial Pre Proc Eval Procedure: Operation Date: 10/07/22 09:30 Proposed Procedures p Colonoscopy - Schuyler Jiang DO Date/Time: 10/07/22 09:18 Surgeon: Schuyler Jiang DO Pre Op Diagnosis: hx of colon polyps Patient Data Age: 67 Gender: F Height: 1.6 m Weight: 67.7 kg Last Vital Signs Temp 97.9 F 10/07/22 08:40 Pulse 100 10/07/22 08:40 Resp 18 10/07/22 08:40 BP 122/74 10/07/22 08:40 Pulse Ox 100 10/07/22 08:40 O2 Del Method Room Air 10/07/22 08:40 Allergies Allergy/AdvReac Type Severity Reaction Status Date / Time Sulfa (Sulfonamide Allergy Unknown Verified 04/04/21 19:07 Antibiotics) Home Medications Medication Instructions Recorded Confirmed Type escitalopram oxalate 10 mg tablet 10 mg PO DAILY 03/28/19 09/03/22 History zolpidem 5 mg tablet 5 mg PO HS PRN INSOMNIA 03/28/19 09/03/22 History amlodipine 10 mg tablet 10 mg PO DAILY 30 days #30 tabs 03/29/19 09/03/22 Rx lisinopril 20 mg tablet 20 mg PO DAILY 60 days #60 tabs 04/07/21 09/03/22 Rx dicyclomine 20 mg tablet 20 mg PO DAILY PRN 09/03/22 09/03/22 History Gastrointestinal Spasms Or Cramping famotidine 40 mg tablet 40 mg PO HS 09/03/22 09/03/22 History Patient hx anesthesia problems: none Family hx anesthesia problems: none Results Review: All pre-operative results and documents have been reviewed as part of the pre-operative evaluation. [facility] Past Medical History Medical History Degenerative disc disease HTN (hypertension) Kidney stone Right knee dislocation Shingles Surgical History Surgical History H/O right knee surgery Right knee reconstruction in November 2018 H/O: hysterectomy History of extraction of renal calculus Hx of tonsillectomy S/P ligament repair Right ACL, MCL, PCL Family History Family History Father Diabetes mellitus Pancreatic cancer Mother Hypertension Sibling Diabetes mellitus Social History Social History Social History: Patient lives with her . She is a full code. No tobacco or alcohol use. Her is her POA. She does have 3 adult daughters. Smoking status: Never smoker Alcohol intake: never Substance use: never Substance use type: does not use Living arrangements: with family Gender identity (if verbalized by the patient): Female Spiritual care concerns: No Agree to blood products: Yes Anes - Eval Final PreProcedure Day of Procedure 10/07/22 09:18 Patient weight: normal Heart: regular rate and rhythm Lungs: clear to auscultation Airway: Mallampati scale class II Neurological: alert and oriented Last oral intake: >/= 8 hours ASA classification: II Emergent: no Anesthetic plan: proceed Anesthesia type and monitoring: general GIVS and standard monitoring Results Review: All pre-operative results and documents have been reviewed as part of the pre-operative evaluation. Informed Consent: The patient's anesthetic plan and its attendant risks and benefits were discussed with the patient/family/POA. Questions were solicited and answers provided to the satisfaction of the patient/family/POA.
--- NOTE | 2022-10-07 09:36 | PM.IMHP ---
H&P: HPI History of Present Illness Date/Time: 10/07/22 09:36 Chief Complaint: Screening for colorectal cancer Narrative: This is a 67-year-old woman who presents for colonoscopy. Her last colonoscopy was 8 years ago. She was found evidence collagenous colitis at that time. She does still have some problems with diarrhea. She is not on any current treatment for this. She denies any family history of colon cancer. Review of Systems Review of Systems: All systems reviewed & are unremarkable except as noted in HPI and below Constitutional: Constitutional: Denies chills, Denies fever(s), Denies headache(s) and Denies weight loss Eyes: Eyes: Denies change in vision ENT: Denies dizziness, Denies headache(s), Denies neck mass and Denies throat swelling Cardiovascular: Cardiovascular: Denies chest pain, Denies lightheadedness and Denies dyspnea Respiratory: Respiratory: Denies cough, Denies dyspnea and Denies wheezing Gastrointestinal: Gastrointestinal: Denies abdominal pain, Denies change in bowel habits, Denies nausea and Denies vomiting Genitourinary: Genitourinary: Denies hematuria and Denies dysuria Musculoskeletal: Musculoskeletal: Reports as per HPI Integumentary/Breasts: Skin/Breast: Reports as per HPI Neurologic: Denies dizziness and Denies headache(s) Allergic/Immunologic: Allergic/Immunologic: Denies throat swelling and Denies wheezing [facility] Past Medical History Medical History (Updated 10/07/22 @ 09:38 by Schuyler Jiang DO) Collagenous colitis Degenerative disc disease HTN (hypertension) Kidney stone Right knee dislocation Shingles Surgical History Surgical History H/O right knee surgery Right knee reconstruction in November 2018 H/O: hysterectomy History of extraction of renal calculus Hx of tonsillectomy S/P ligament repair Right ACL, MCL, PCL Family History Family History Father Diabetes mellitus Pancreatic cancer Mother Hypertension Sibling Diabetes mellitus Social History Social History Social History: Patient lives with her . She is a full code. No tobacco or alcohol use. Her is her POA. She does have 3 adult daughters. Smoking status: Never smoker Alcohol intake: never Substance use: never Substance use type: does not use Living arrangements: with family Gender identity (if verbalized by the patient): Female Spiritual care concerns: No Agree to blood products: Yes Meds Home Medications and Allergies Home Medications Medication Instructions Recorded Confirmed Type escitalopram oxalate 10 mg tablet 10 mg PO DAILY 03/28/19 09/03/22 History zolpidem 5 mg tablet 5 mg PO HS PRN INSOMNIA 03/28/19 09/03/22 History amlodipine 10 mg tablet 10 mg PO DAILY 30 days #30 tabs 03/29/19 09/03/22 Rx lisinopril 20 mg tablet 20 mg PO DAILY 60 days #60 tabs 04/07/21 09/03/22 Rx dicyclomine 20 mg tablet 20 mg PO DAILY PRN 09/03/22 09/03/22 History Gastrointestinal Spasms Or Cramping famotidine 40 mg tablet 40 mg PO HS 09/03/22 09/03/22 History Allergies Allergy/AdvReac Type Severity Reaction Status Date / Time Sulfa (Sulfonamide Allergy Unknown Verified 04/04/21 19:07 Antibiotics) Vital Signs Vital Signs - 24 hr 10/07/22 08:40 Temperature 36.6 C Pulse Rate 100 Respiratory Rate 18 Blood Pressure 122/74 Pulse Oximetry 100 Oxygen Delivery Room Air Exam Const: General: no acute distress and alert Orientation/consciousness: patient oriented x3 HENMT: Head: normocephalic and atraumatic Ears: hearing grossly normal bilaterally Face/Nose/Sinus: Normal nares present Mouth: Yes Normal oral and palatal mucosa present Eyes: Periorbital: periorbital findings normal Sclera: sclerae normal EOM: EOMs intact bilaterally Neck: Neck: normal visual i
[2022-10-07 10:24] VITALS: BP 131/74; PULSE 75; RESP 24; O2SAT 100
[2022-10-07 10:34] VITALS: BP 127/79; PULSE 75; RESP 16; O2SAT 100
[2022-10-07 10:44] VITALS: BP 124/73; PULSE 72; RESP 20; O2SAT 100
== END 2022-10-07 10:57 | disposition home or self-care (01) ==
PROVIDERS: PCP Nurse Practitioner Family; Visit Provider Surgery
PROC: 0DJD8ZZ Inspection of Lower Intestinal Tract, Via Natural or Artificial Opening Endoscopic (ICD-10-PCS; CPT 45378; principal; 2022-10-07 09:30)
DX: Z12.11 Encounter for screening for malignant neoplasm of colon (principal); K57.30 Diverticulosis of large intestine without perforation or abscess without bleeding; Z87.19 Personal history of other diseases of the digestive system; I10 Essential (primary) hypertension
CPT/HCPCS: 45380; 88305; J2704; J7120

== ENCOUNTER → 2022-10-29 11:06 | Outpatient (CLI) | payer MEDICARE, OTHER, SELFPAY ==
--- NOTE | ~2022-10-29 | MM_ITS ---
EXAMINATION: MM screening fransico BI w kaylynn HISTORY: Screening mammogram TECHNIQUE: Craniocaudal and mediolateral oblique 3-D tomosynthesis images were obtained and synthetic 2-D images were generated. CAD analysis was submitted and interpreted. COMPARISON: 01/08/2021, 10/16/2019, 04/01/2018 bilateral screening mammogram examinations BREAST PARENCHYMAL COMPOSITION: There are scattered areas of fibroglandular density. FINDINGS: There is no evidence of suspicious mass, calcification, or architectural distortion to sugg est malignancy in either breast. There has been no suspicious interval change. IMPRESSION: 1. No mammographic evidence of malignancy. 2. Recommend routine screening mammography in one year. BI-RADS Category 1: Negative Reviewed, dictated and finalized at location A.
--- NOTE | ~2022-10-29 | DEXA_ITS ---
Bone Density Report Name: CAIT JOVEL Age: 67 Sex: Female Ethnicity: White Date of : 1955 Indication: postmenopausal osteoporosis; monitoring treatment; parental hip fracture; height loss; hysterectomy; Referring Provider: Oksana, Pia Presley Study: Bone densitometry was performed. Exam Date: October 29, 2022 Accession number: [id number] Bone Density: Region BMD T-score Z-score Classification AP Spine (L1-L4) 0.785 -2.4 -0.4 Osteopenia Femoral Neck (Left) 0.601 -2.2 -0.6 Osteopenia Total Hip (Left) 0.759 -1.5 -0.1 Osteopenia Femoral Neck (Right) 0.568 -2.5 -0.9 Osteoporosis Total Hip (Right) 0.663 -2.3 -0.9 Osteopenia Total Hip Mean 0.711 -1.9 -0.5 Osteopenia World Health Organization criteria for BMD impression classify patients as: Normal (T-score at or above -1.0), Osteopenia (T-score between -1.0 and -2.5), or Osteoporosis (T-score at or below -2.5). 10-year Fracture Risk: FRAX not reported because: Some T-score for Spine Total or Hip Total or Femoral Neck at or below -2.5 Treated for osteoporosis Previous Exams: Region Exam Age BMD T-score BMD Change BMD Change Date g/cm2 vs Baseline vs Previous AP Spine(L1-L4) 10/29/2022 67 0.785 -2.4 0.038* 0.019 11/07/2019 64 0.766 -2.6 0.019 0.013 10/17/2017 62 0.753 -2.7 0.006 -0.008 10/13/2015 60 0.760 -2.6 0.014 0.000 05/17/2013 58 0.760 -2.6 0.013 -0.015 04/22/2011 56 0.775 -2.5 0.028* 0.092* 02/18/2010 55 0.683 -3.3 -0.063* -0.063* 04/19/2007 52 0.747 -2.7 Total Hip(Left) 10/29/2022 67 0.759 -1.5 -0.026 -0.016 11/07/2019 64 0.775 -1.4 -0.010 0.000 10/17/2017 62 0.775 -1.4 -0.010 -0.015 10/13/2015 60 0.789 -1.3 0.005 -0.010 05/17/2013 58 0.799 -1.2 0.015 -0.033* 04/22/2011 56 0.832 -0.9 0.047* 0.055* 02/18/2010 55 0.777 -1.3 -0.007 -0.007 04/19/2007 52 0.785 -1.3 Total Hip(Right) 10/29/2022 67 0.663 -2.3 -0.064* -0.014 11/07/2019 64 0.678 -2.2 -0.049* -0.056* 10/17/2017 62 0.734 -1.7 0.007 -0.010 10/13/2015 60 0.744 -1.6 0.017 -0.021 05/17/2013 58 0.765 -1.5 0.038* -0.006 04/22/2011 56 0.771 -1.4 0.044* 0.018 02/18/2010 55 0.753 -1.6 0.026 0.026 04/19/2007 52 0.727 -1.8 --------
== END ==
PROVIDERS: PCP Nurse Practitioner Family; Visit Provider Nurse Practitioner Family
DX: Z12.31 Encounter for screening mammogram for malignant neoplasm of breast (principal); M81.0 Age-related osteoporosis without current pathological fracture; M85.88 Other specified disorders of bone density and structure, other site; M85.852 Other specified disorders of bone density and structure, left thigh; M85.851 Other specified disorders of bone density and structure, right thigh
CPT/HCPCS: 77063; 77067; 77080

== ENCOUNTER 2023-01-28 15:25 | Emergency (ER) | payer MEDICARE, OTHER, SELFPAY ==
--- NOTE | ~2023-01-28 | CT_ITS ---
EXAMINATION: CT abdomen pelvis w con DATE: 01/28/2023 17:47 INDICATION: Right flank and hip pain TECHNIQUE: Computed tomography (CT) of the abdomen and pelvis was performed with 100 cc Omnipaque 350 intravenous contrast. The dose-length product was 513.85 mGy-cm. Automated exposure control and iter ative reconstruction technique were employed. COMPARISON: CT dated 04/05/2021 FINDINGS: Lung bases are unremarkable. Heart size normal. No significant pleural or pericardial effus ion. The liver, spleen, pancreas, adrenal glands and kidneys are unremarkable. Small fat-containing u mbilical hernia. No significant hydronephrosis. Bladder is moderately distended although unremarkable . Gallbladder is present. No significant vascular abnormality. No lymphadenopathy. There are bilatera l fat-containing inguinal hernias. There is grade 2 spondylolisthesis at L5-S1 secondary to spondylol ysis with complete loss of disc space at this level. IMPRESSION: 1. No acute abdominal abnormality. Reviewed, dictated and finalized at location A.
[2023-01-28 15:47] VITALS: BP 122/62; PULSE 65; RESP 18; TEMP 36.6; O2SAT 100
[2023-01-28 16:22] LABS: Basophils Percent Auto 0.4 % (0.2-1.2); Eosinophils Absolute Auto 0.2 K/mm3 (0-0.3); Eosinophils Percent Auto 2.6 % (0-4.4); Hematocrit 37.5 % (37.0-47.0); Immature Granulocyte Absolute 0.02 K/mm3 (0.00-0.031); Immature Granulocyte Percent A 0.2 % (0-0.5); Lymphocytes Absolute Auto 1.94 K/mm3 (0.9-3.2); Lymphocytes Percent Auto 21.1 % (18.3-44.2); Mean Corpuscular Hemoglobin 28.7 pg (26-34); Mean Corpuscular Volume 89.7 fl (80-100); Mean Platelet Volume 10.9 fl (7.4-10.4); Monocytes Absolute Auto 1.1 K/mm3 (0.1-0.6); Monocytes Percent Auto 11.7 % (2.6-8.5); Neutrophils Absolute Auto 5.9 K/mm3 (1.3-6.7); Platelet Count Result 257 k/mm3 (150-375); Red Blood Count 4.18 M/mm3 (4.2-5.4); Red Cell Distribution Width 12.5 % (11.5-14.5); White Blood Count 9.2 K/mm3 (4.5-10.0)
[2023-01-28 16:24] LABS: Appearance Urine Clear (Clear); Bilirubin Urine Negative (Negative); Blood Urine Negative (Negative); Color Urine Yellow (Yellow); Glucose Urine UA Negative (Negative); Ketones Urine Negative (Negative); Leukocyte Esterase Ur Negative LEU/UL (Negative); Nitrate Urine Negative (Negative); Protein Urine Negative (Negative); Urobilinogen Urine 0.2 mg/dL (<2.0); pH Urine 6.5 (5.0-9.0)
[2023-01-28 16:42] LABS: Alanine Aminotransferase 20 U/L (6-35); Albumin Level 4.9 g/dL (3.5-5.1); Alkaline Phosphatase 107 U/L (38-126); Anion Gap 11 mmol/L (8-16); Aspartate Amino Transferase 29 U/L (14-36); Bilirubin,Total 0.6 mg/dL (0.2-1.3); Blood Urea Nitrogen 13 mg/dL (7-17); Calcium 9.3 mg/dL (8.4-10.2); Carbon Dioxide 24 mmol/L (22-30); Chloride 102 mmol/L (98-107); Estimated Glomerular Filt Rate > 60; Glucose 90 mg/dL (65-110); Potassium 3.6 mmol/L (3.4-5.0); Sodium 137 mmol/L (137-145)
[2023-01-28 16:51] LABS: Add Urine Microscopic? NO
[2023-01-28 17:03] VITALS: BP 114/80; PULSE 64; RESP 18; O2SAT 99
--- NOTE | 2023-01-28 17:34 | ED.GENADULT ---
HPI - General Adult General Chief complaint: Back Pain/Injury Stated complaint: R lower back pain - on Cipro for UTI tx Time Seen by Provider: 01/28/23 17:04 History of Present Illness HPI narrative: Patient is a 67-year-old female who presents to the emergency department this afternoon complaining of right flank pain. Patient states that the pain started earlier this week and she saw her PCP who prescribed her an antibiotic thinking that this could be a urinary tract infection. Patient states that she has finished 3 days worth of antibiotics but her symptoms have only persisted. Patient denies any precipitating symptoms when the pain started, denies lifting any heavy objects or any trauma. Patient admits to a history of kidney stones but states that she has not had one in many years. She denies any history of a cancer, any bowel or bladder incontinence, and denies any additional symptoms including chest pain, shortness of breath, nausea, vomiting, abdominal pain, dysuria, hematuria, constipation, diarrhea, melena, hematochezia, fevers or chills. He also denies any headaches, dizziness, lightheadedness, blurry visions, dizziness, focal weakness, numbness and or tingling. There are no other modifying, alleviating, or precipitating factors at this time. Related Data Home Medications Medication Instructions Recorded Confirmed escitalopram oxalate 10 mg tablet 10 mg PO DAILY 03/28/19 09/03/22 zolpidem 5 mg tablet 5 mg PO HS PRN INSOMNIA 03/28/19 09/03/22 dicyclomine 20 mg tablet 20 mg PO DAILY PRN 09/03/22 09/03/22 Gastrointestinal Spasms Or Cramping famotidine 40 mg tablet 40 mg PO HS 09/03/22 09/03/22 Allergies Allergy/AdvReac Type Severity Reaction Status Date / Time Sulfa (Sulfonamide Allergy Unknown Verified 01/28/23 15:26 Antibiotics) Review of Systems Review of Systems: All systems are reviewed and are negative unless stated otherwise in the HPI. [facility] Past Medical History Medical History Collagenous colitis Degenerative disc disease HTN (hypertension) Kidney stone Right knee dislocation Shingles Surgical History Surgical History H/O right knee surgery Right knee reconstruction in November 2018 H/O: hysterectomy History of extraction of renal calculus Hx of tonsillectomy S/P ligament repair Right ACL, MCL, PCL Family History Family History Father Diabetes mellitus Pancreatic cancer Mother Hypertension Sibling Diabetes mellitus Social History Social History Social History: Patient lives with her . She is a full code. No tobacco or alcohol use. Her is her POA. She does have 3 adult daughters. Smoking status: Never smoker Alcohol intake: never Substance use: never Substance use type: does not use Living arrangements: with family Gender identity (if verbalized by the patient): Female Spiritual care concerns: No Agree to blood products: Yes Exam Narrative: General: Alert, awake, afebrile, in no acute distress. HEENT: PERRL, no rhinorrhea, no post nasal drip, oropharynx clear. Neck: Trachea midline, no JVD, no lymphadenopathy. Cardiovascular: Regular rate and rhythm, no murmurs, rubs or gallops, no peripheral edema. Respiratory: Clear to auscultation bilaterally, no tachypnea, no wheezing, no rhonchi, no rubs, no respiratory distress. Abdomen: Soft, nontender, nondistended, no rebound, no guarding, no peritoneal signs, no CVA tenderness bilaterally. Musculoskeletal: No joint swelling or deformity, normal muscle tone, tenderness to palpation over the right SI joint. Back: No midline tenderness to palpation over the cervical, thoracic, and lumbar spine. Skin: No rashes or petechia, no signs of infection. Psychiatric: Alert and oriente
[2023-01-28 18:13] VITALS: BP 115/74; PULSE 67; RESP 18; O2SAT 99
== END 2023-01-28 18:30 | disposition home or self-care (01) ==
PROVIDERS: Emergency Medicine; Emergency Provider Emergency Medicine; PCP Nurse Practitioner Family
DX: M51.17 Intervertebral disc disorders with radiculopathy, lumbosacral region (principal); I10 Essential (primary) hypertension; Z87.442 Personal history of urinary calculi; Z90.710 Acquired absence of both cervix and uterus
CPT/HCPCS: 36415; 74177; 80053; 81003; 85025; 99284; Q9967

== ENCOUNTER 2023-07-25 07:45 | Outpatient (CLI) | payer MEDICARE, OTHER, SELFPAY ==
--- NOTE | ~2023-07-25 | US_ITS ---
US right upper quadrant INDICATION: Chronic diarrhea PROCEDURE: Realtime right upper abdominal ultrasound. COMPARISON: No prior studies for comparison. FINDINGS: The pancreas is normal without focal mass or pancreatic ductal dilation. Liver echotexture is normal without focal mass or intrahepatic biliary dilatation. There is normal directional flow i n the portal vein. There is a 5 mm gallbladder polyp. Common bile duct measures 4 mm. No sonographic Moran's sign. Ri ght renal echotexture is unremarkable. IMPRESSION: 1: Gallbladder polyp measuring 5 mm. Reviewed, dictated and finalized at location B.
== END 2023-07-25 07:46 ==
PROVIDERS: PCP Physician Assistant; Visit Provider Physician Assistant
DX: K52.9 Noninfective gastroenteritis and colitis, unspecified (principal); K82.4 Cholesterolosis of gallbladder
CPT/HCPCS: 76705

== ENCOUNTER 2023-08-10 08:10 | Outpatient (CLI) | payer MEDICARE, OTHER, SELFPAY ==
--- NOTE | ~2023-08-10 | NM_ITS ---
EXAMINATION: NM hepatobiliary w pharm DATE: 08/10/2023 10:47 INDICATION: Gallbladder polyp. Chronic diarrhea. COMPARISON: Ultrasound dated 07/25/[address] dated 01/28/2023 TECHNIQUE: 5.019 mCi Tc-99m mebrofenin (Choletec) was administered intravenously. Scintigraphic imag es of the abdomen were obtained for one hour. 1.5 mcg sincalide (Kinevac) was administered by slow in travenous infusion, and imaging was continued for 30 minutes. Gallbladder ejection fraction was calcu lated by the technologist. FINDINGS: There is normal clearance of radiotracer from the blood pool. There is homogeneous tracer uptake by t he liver. Activity progresses to the gallbladder and bowel. The gallbladder ejection fraction (GBEF) is 77% (normal 10-90%, but most patient with gallbladder dysfunction have GBEF < 35% which does over lap with the normal range). IMPRESSION: 1. Normal hepatobiliary scan. Reviewed, dictated and finalized at location A.
== END 2023-08-10 08:11 | disposition home or self-care (01) ==
LOC: ANHIMG 08:13
PROVIDERS: PCP Physician Assistant; Visit Provider Physician Assistant
DX: K82.4 Cholesterolosis of gallbladder (principal)
CPT/HCPCS: 78227; A9537; J2805

== ENCOUNTER 2024-02-13 10:03 | Outpatient (CLI) | payer MEDICARE, OTHER, SELFPAY ==
--- NOTE | ~2024-02-13 | MM_ITS ---
EXAMINATION: MM screening [facility] BI w kaylynn HISTORY: Screening mammogram TECHNIQUE: Craniocaudal and mediolateral oblique 3-D tomosynthesis images were obtained and synthetic 2-D images were generated. CAD analysis was submitted and interpreted. COMPARISON: 10/29/2022, 01/08/2021, 10/16/2019 BREAST PARENCHYMAL COMPOSITION:Not Dense. There are scattered areas of fibroglandular density. FINDINGS: No suspicious mass, calcification, or architectural distortion are identified in either vipul ast to suggest malignancy. There has been no suspicious interval change. IMPRESSION: No mammographic evidence of malignancy. Recommend routine screening mammography in one year. BI-RADS Category 1: Negative Reviewed, dictated and finalized at location . [employer]
== END 2024-02-13 10:04 | disposition home or self-care (01) ==
LOC: MICIMG 10:04
PROVIDERS: PCP Physician Assistant; Visit Provider Physician Assistant
DX: Z12.31 Encounter for screening mammogram for malignant neoplasm of breast (principal)
CPT/HCPCS: 77063; 77067

== ENCOUNTER 2024-07-26 16:27 | Outpatient (CLI) | payer MEDICARE, OTHER, SELFPAY ==
--- NOTE | ~2024-07-26 | CT_ITS ---
CT of the Abdomen and Pelvis: Indication: Abdominal pain Technique: 2.5 mm axial scans were obtained through the abdomen and pelvis following intravenous adm inistration of 100 cc of Omnipaque 350. Dose reduction technique was used on this scan by utilizing a utomated exposure control and iterative reconstruction technique. The dose-length product (DLP) was 4 25.99 mGy-cm. COMPARISON: 01/28/2023 Findings: Scans through the lung bases are unremarkable. The liver, spleen, pancreas, gallbladder, adrenals and kidneys are within normal limits. No evidence of aortic aneurysm. No lymphadenopathy. No bowel obstruction or bowel wall thickening. There is no evidence to suggest acute appendicitis. Sm all fat-containing abdominal hernia noted. Images through the pelvis were performed. Urinary bladder unremarkable. No pelvic mass seen. No ascit es. Possible lipoma in the medial right buttock. Bilateral L5 pars interarticularis defects are prese nt, with 15 mm anterolisthesis of L5 over S1. Impression: No acute abnormalities seen. Possible lipoma in the medial right buttock. Bilateral L5 pars interarticularis defects, with 15 mm anterolisthesis of L5 over S1. Reviewed, dictated and finalized at location . Impression: No acute abnormalities seen. Possible lipoma in the medial right buttock. Bilateral L5 pars interarticularis defects, with 15 mm anterolisthesis of L5 ov er S1.
--- OUTSIDE RECORDS SUMMARY | 2024-07-26 16:32 | XMS_ITS | Data Portability ---
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 Eye exam UTD Dental visit UTD Not available 07/20/2023 11:27:13 01/18/2024 01/18/2024 Mammogram due feb 12. Eye exam UTD Dental visit UTD Not available 01/18/2024 11:15:54 Plan of Treatment Reminders Order Date Submit Date Provider Last Modified By Organization Details Last Modified Time Details Appointments ANY 15 2024 10:15A M SINCERE Omer Not available Not available Not available Lab urinalysi s, complete 2023 [email or web address] [facility], [address], [address], 02/01/2024 11:02:14 culture, urine 2023 024 [email or web address] [facility], [address], [address], 02/01/2024 11:02:14 BMP, serum or plasma 2023 024 [email or web address] [facility], [address], [address], 02/01/2024 11:02:14 hepatic function panel, serum 2023 024 [email or web address], [address], [address], 02/01/2024 11:02:14 CBC w/ auto diff 2023 024 [email or web address], [facility] [address], [address], 02/01/2024 11:02:13 iron + TIBC + ferritin, serum 2023 024 [facility] [facility], [facility] [address], [address], 01/25/2024 09:29:21 lipid panel, serum 2023 024 [place] [address] [facility], [facility] [address], [address], 02/01/2024 11:02:13 O&P (ova & parasites ), stool 2023 024 [facility], [facility] [address], [address], 08/01/2023 10:59:29 salmonell a sp + shigella sp, culture, stool 2023 024 [facility] [employer] [facility], [facility] [address], [address], 08/03/2023 11:05:19 campyloba cter sp, culture, unspecifi ed specimen 2023 024 [facility] [employer] [facility], [facility] [address], [address], 08/03/2023 11:05:24 giardia + cryptospo ridium Ag, stool 2023 024 ALYSSA [facility], [address] [facility] [address], [place], [address], 08/01/2023 10:30:54 C diff toxin A+B, qualitati ve, stool 2023 024 [email or web address], [address] [facility] [address], [place], [address], 08/01/2023 10:59:24 calprotec tin, stool 2023 024 [email or web address], [address] [facility] [address], [place], [address], 08/01/2023 10:59:15 wbc, stool 2023 024 [email or web address] [facility], [address] [facility] [address], [place], [address], 08/01/2023 10:59:19 celiac disease comprehen sive panel, serum 2023 024 [email or web address] [facility], [address] [facility] [address], [place], [address], 08/01/2023 10:58:15 pancreati c elastase, stool 2023 024 [email or web address] [facility], [address] [facility] [address], [place], [address], 08/01/2023 10:59:09 BMP, serum or plasma 2023 024 [email or web address] [facility], [address] [facility] [address], [place], [address], 08/01/2023 10:57:03 hepatic function panel, serum 2023 024 [email or web address] [facility], [address] [facility] [address], [place], [address], 08/01/2023 10:57:07 TSH + free T4, serum 2023 024 [employer] [facility], [address], [address], 08/01/2023 10:57:46 CBC w/ auto diff 2023 024 [facility], [address], [address], 08/01/2023 10:57:42 vitamin B12 + folate, serum or blood 2023 024 [facility], [address], [address], 08/01/2023 10:57:37 lipid panel, serum 2023 024 [facility], [address], [address], 08/01/2023 10:56:36 Referral None recorded. Procedures None recorded. Surgeries None recorded. Imaging MAMMO, screening , digital, bilateral 2023 [facility], [address], [place], [address], 02/13/2024 12:32:19 US, gallbladd er 2023 024 [facility], [address], [place], [address], 07/25/2023 12:50:22 Medication Orders ibandrona te 150 mg tablet 2023 024 [facility], [address] [facility], [place], [address], 07/20/2023 11:33:22 Cholestyr amine Light 4 gram oral powder [id number] ALYSSA Rodriguez [facility] [address], [address], [place], [address], 01/18/2024 10:52:48 famotidin e 40 mg tablet 2023 ALYSSA [facility], [address] [place] [address], [address], 07/20/2023 11:33:24 atorvasta tin 10 mg tablet 2023 ALYSSA [facility], [address] [place] [address], [address], 07/20/2023 11:33:26 escitalop camryn 10 mg tablet 2023 ALYSSA [facility], [address] [place] [address], [address], 07/20/2023 11:33:27 lisinopri l 20 mg tablet 2023 ALYSSA [facility], [address] [place] [address], [address], 07/20/2023 11:33:22 amlodipin e 10 mg tablet 2023 024 [facility], [address] [place] [address], [address], 07/20/2023 11:33:25 Patient TargetsNo targets recorded. Patient Instructions Encounter Date Encounter Id Patient Instructions Last Modified By Organization Details Last Modified Time 01/18/2024 [id number] A healthy lifestyle: care instructions Not available 01/18/2024 11:18:36 Reason for Referral None Reported. Results Created Date Observation Date Name Description Value Unit Range Abnormal Flag Note LastModifiedBy Organization Detail LastModifiedTime 07/25/19 24 07/25/2023 , vy espinoza No observ ation record ed. [email or web address] [address], [place], [address], 08/01/2023 10:26:03 08/11/19 24 08/10/2023 NM, hepat obili selwyn scan No observ ation record ed. [facility] [address], [place], [address], 08/16/2023 09:29:04 02/13/20 24 02/13/2024 MAMMO , scree eugenie, digit al, bilat eral No observ ation record ed. [email or web address] [address], [place], [address], 02/13/2024 18:06:18 Result Notes None recorded. Problems Name Problem SNOMED Code Status Onset Date Resolution Date Notes Provider Name and Address Organization Details Recorded Time Hyperlipidemi a 53921041 Active 2023 SINCERE Omer Attn: Baljeet iqbal,[address] [place], [address], [facility] 4 08:35:35 Benign essential hypertension 7866317 Active 2023 SINCERE Omer Attn: Baljeet iqbal,[address] [place], [address], [facility] 4 08:35:36 Generalized anxiety disorder 37601857 Active 2023 SINCERE Omer Attn: Baljeet iqbal,[address] [facility], [place], [address], [facility] 4 08:35:38 Osteoporosis 42131878 Active 2023 SINCERE Omer Attn: Baljeet g,[address] [facility], [place], [address], [facility] 4 08:35:39 Insomnia 215548196 Active 2023 SINCERE Omer Attn: Baljeet g,[address] [facility], [place], [address], [facility] 4 08:35:40 Acid reflux 683612438 Active 2023 SINCERE Omer Attn: Baljeet iqbal,[address] [facility], [place], [address], [place] [facility] 4 08:35:41 Chronic diarrhea of unknown origin 00953033 Active 2023 SINCERE Omer Attn: Accountraven g,[address] [facility], [place], [address], [place] [facility] 4 08:35:43 Long-term drug therapy Active 2023 SINCERE Omer Attn: Accountraven iqbal,[address] [facility], [place], [address], [place] [facility] 4 08:35:44 Body mass index 25-29 - overweight 968894362 Active 2023 José Antonio Cordova MA null, [place] [facility] 4 10:54:16 Anemia 095698309 Active 2023 SINCERE Omer Attn: Accountraven g,[address] [facility], [place], [address], [place] [facility] 4 22:30:31 Lower urinary tract symptoms 928353295 Active 2023 SINCERE Omer Attn: Accountraven g,[address] [facility], [place], [address], [place] [facility] 4 22:30:32 Lymphocytic colitis 2511703151 Active 2024 SINCERE Omer Attn: Accountin g,[address] [facility], [place], [address], [place] [facility] 5 11:37:24 Overweight 983709465 Active 2024 SINCERE Omer Attn: Accountraven g,[address] [facility], [place], [address], [place] [facility] 5 11:41:01 Problem Notes None recorded. Procedures Surgical History Date Name Laterality Status Provider Name and Address Organization Details Recorded Time hysterectomy completed José Antonio Cordova MA [facility] 07/20/2023 11:37:33 Knee Surgery completed José Antonio Cordova MA [facility] 07/20/2023 11:37:41 Tonsillectomy completed José Antonio Cordova MA [facility] 07/20/2023 11:37:46 Imaging Results Imaging Date Name Status LastModified by Organization Details LastModified Time 07/25/2023 US, gallbladder completed [facility] [address], [place], [address], 08/01/2023 10:26:03 08/10/2023 NM, hepatobiliary scan completed [facility] [address], [place], [address], 08/16/2023 09:29:04 02/13/2024 MAMMO, screening, digital, bilateral completed [facility] [address], [place], [address], 02/13/2024 18:06:18 Procedure Notes None recorded. Medical Equipment None Reported. Allergies Allergen ID Allergen Name Allergen Category Reaction Reaction Severity Criticality Documentation Date Start Date Code Code System Note Provider Name and Address Organization Details Recorded Time 061098 Substance with sulfonami de structure and antibacte rial mechanism of action (substanc e) medicatio n Not available Not available Not available 01/18/2024 16093 8003 SNOMED José Antonio Cordova MA null, [facility] 10:51:47 Medications Name Sig Start Date Stop Date Status Note LastModified by Organization Details LastModified Time atorvasta tin 10 mg tablet Take 1 tablet every day by oral route. active Not Available Not Available No t Available lisinopri l 20 mg tablet TAKE 1 TABLET DAILY 2024 active Not Available Not Available Not Avai lable famotidin e 40 mg tablet Take 1 tablet every day by oral route. active Not Available Not Available No t Available metronida zole 500 mg tablet TAKE 1 TABLET BY MOUTH EVERY 8 HOURS FOR 10 DAYS 01/17 completed Not Available Not Available Not Available ciproflox acin 500 mg tablet TAKE 1 TABLET BY MOUTH EVERY 12 HOURS 07/25 completed Not Available Not Available Not Available Cholestyr amine Light 4 gram powder for suspensio n in a packet MIX WITH LIQUID AND TAKE 1 PACKET BY MOUTH TWICE DAILY 01/17 completed Not Available Not Available Not Available meloxicam 7.5 mg tablet TAKE 1 TABLET BY MOUTH TWICE DAILY NEEDED TAKE WITH FOOD 07/19 completed Not Available Not Available Not Available dicyclomi ne 20 mg tablet 07/19 completed stopped taking/a dverse reaction made her mouth dry Not Available Not Available Not Available amlodipin e 10 mg tablet TAKE 1 TABLET DAILY 2024 active Not Available Not Available Not Avai lable lisinopri l 10 mg tablet 07/19 completed Not Available Not Available Not Available budesonid e DR - ER 3 mg capsule,d elayed,ex tended release Take 3 capsules every day by oral route for 56 days. active Not Available Not Available No t Available zolpidem 10 mg tablet Take 1 tablet every day by oral route as needed. 2024 active Not Available Not Available Not Avai lable scopolami ne 1 mg over 3 days transderm al patch APPLY 1 PATCH TO SKIN EVERY 3 DAYS NEEDED FOR DIZZINES S. REMOVE OLD PATCH PRIOR TO APPLYING NEW PATCH. 07/19 completed Not Available Not Available Not Available escitalop camryn 10 mg tablet TAKE 1 TABLET DAILY 2024 active Not Available Not Available Not Avai lable nitrofura ntoin monohydra te/macroc rystals 100 mg capsule TAKE 1 CAPSULE BY MOUTH TWICE DAILY FOR 5 DAYS 01/17 completed Not Available Not Available Not Available ibandrona te 150 mg tablet TAKE 1 TABLET EVERY MONTH 2024 active Not Available Not Available Not Avai lable Cholestyr amine Light 4 gram oral powder Take 1 scoop twice a day by oral route. 01/17 completed Not Available Not Available Not Available Creon 24,000-76 ,000-120, 000 unit capsule,d elayed release Take 1 capsule 3 times a day by oral route before meal(s). 01/17 completed Not Available Not Available Not Available Zenpep 40,000 unit-126, 000 unit-168, 000 unit capsule,d elayed release TAKE 1 CAPSULE BY MOUTH WITH EACH MEAL 01/17 completed Not Available Not Available Not Available Vitals Date Recorded Body height Body mass index (BMI) Body weight Respiratory rate Heart rate Oxygen saturation Oxygen saturation in Arterial blood by Pulse oximetry Systolic blood pressure Diastolic blood pressure Provider Name and Address Organization Details Last Updated DateTime 4 152.4 cm 30.3 kg/m2 58547.2 5 g 20 /min 78 /min 97 % 97 % 122 mm[Hg] 82 mm[Hg] José Antonio Cordova MA [facility] 11:06:06 Date Recorded Systolic blood pressure Diastolic blood pressure Provider Name and Address Organization Details Last Updated DateTime 07/20/2023 118 mm[Hg] 70 mm[Hg] SINCERE Omer Attn: Accounting,[address] [place], [address], [facility] 07/20/2023 11:32:09 Date Recorded Body height Body mass index (BMI) Body weight Respiratory rate Oxygen saturation Oxygen saturation in Arterial blood by Pulse oximetry Heart rate Systolic blood pressure Diastolic blood pressure Provider Name and Address Organization Details Last Updated DateTime 4 152.4 cm 28.7 kg/m2 01557 g 20 /min 98 % 98 % 73 /min 122 mm[Hg] 82 mm[Hg] José Antonio Cordova MA [facility] 10:55:51 Date Recorded Systolic blood pressure Diastolic blood pressure Provider Name and Address Organization Details Last Updated DateTime 01/18/2024 120 mm[Hg] 80 mm[Hg] SINCERE Omer Attn: Accounting[address] [place], [address], [facility] 01/18/2024 11:24:28 Date Recorded Body height Body mass index (BMI) Body weight Oxygen saturation Oxygen saturation in Arterial blood by Pulse oximetry Respiratory rate Heart rate Systolic blood pressure Diastolic blood pressure Provider Name and Address Organization Details Last Updated DateTime 5 152.4 cm 28.3 kg/m2 08862.8 9 g 98 % 98 % 20 /min 73 /min 138 mm[Hg] 82 mm[Hg] José Antonio Cordova MA [place] [facility] 11:21:38 Social History Question Answer Notes LastModified by Organizat ion Details LastModified Time Tobacco Smoking Status Never Smoker José Antonio Cordova MA null, [place] [facility] 07/20/2023 11:02:29 Do You Have An Advance Directive? Yes Information n ot available 01/18/2024 What Is Your Level Of Alcohol Consumption? None Information not available 07/20/2023 Are You Blind Or Do You Have Difficulty Seeing? No Information n ot available 07/20/2023 What Is Your Level Of Caffeine Consumption? Occasional Soda Information not available 07/20/2023 In The 14 Days Before Symptom Onset, Have You Had Close Contact With A Laboratory-confirm ed COVID-19 While That Case Was Ill? No Information n ot available 07/20/2023 In The 14 Days Before Symptom Onset, Have You Had Close Contact With A Person Who Is Under Investigation For COVID-19 While That Person Was Ill? No Information not available 07/20/2023 Have You Been To An Area Known To Be High Risk For COVID-19? No Information not available 07/20/2023 Are You Currently Employed? No Information not available 07/25/2024 Are You Deaf Or Do You Have Serious Difficulty Hearing? No Information not available 07/20/2023 What Type Of Diet Are You Following? REGULAR Information n ot available 07/20/2023 Are There Any Guns Present In Your Home? No Information not available 07/20/2023 What Was The Date Of Your Most Recent Tobacco Screening? 07/25/2024 Information not available 07/25/2024 What Is Your Relationship Status? Information not available 07/20/2023 Do You Use Your Seat Belt Or Car Seat Routinely? Yes Information not available 07/20/2023 Do You Have Smoke And Carbon Monoxide Detectors In Your Home? Yes Information not available 07/20/2023 Do You Feel Stressed (tense, Restless, Nervous, Or Anxious, Or Unable To Sleep At Night)? IQ5716-0 Information not available 07/20/2023 Do You Use Any Illicit Or Recreational Drugs? No Information not available 07/20/2023 Do You Use Sunscreen Routinely? No Information not available 07/20/2023 Has Tobacco Cessation Counseling Been Provided? Yes Information not available 07/20/2023 On What Date Was Tobacco Cessation Counseling Provided? 07/25/2024 Information not available 07/25/2024 Do You Or Have You Ever Used Any Other Forms Of Tobacco Or Nicotine? No Information not available 07/20/2023 Sex: Female Functional Status Question Answer Note LastModified by Organizat ion Details LastModified Time Are you able to care for yourself? Yes Information not available 07/20/2023 What is your exercise level? Occasional house work/ every work Information not available 07/20/2023 Mental Status None recorded. Family History Relationship Description Onset Age of this Age Resolved Age Notes LastModified by Organization Details LastModified Time Mother Dementia [email or web address] Not availabl e 07/20/2023 11:38:02 Father Diabetes mellitus [email or web address] Not available 2023 11:38:07 Medical History Condition Response Coronary Artery Disease N Other N High Blood Pressure Y Atrial Fibrillation N Kidney or Bladder Problems N Thyroid Problems N GI Problems N Depression N COPD N Blood Clots N Skin Problems N Anemia N Heart Attack (ID) N Anxiety Disorder Y Diabetes N Muscle, Joint, or Bone Problems N Seizures/Epilepsy N Acid Reflux (GERD) Y Cancer N Stroke N Asthma N Allergies N High Cholesterol N Hepatitis N Liver Disease N Headaches N Heart Failure N Osteoporosis Y Gynecological History Statement/Question Response Menses Monthly N Current Control Method Other Obstetrics History GPAL:G 0 P 0 0 0 0 Immunizations Vaccine Type Date Status Note Provider Nam e and Address Organization Details Recorded Time Influenza, split virus, quadrivalent, preservative 9 completed José Antonio Cord[place] null, [place] [facility] 01/17/2024 10:52:28 Influenza, high-dose, quadrivalent, PF 3 completed COLLETTE High, [place] [facility] 01/17/2024 10:52:28 Influenza, high-dose, quadrivalent, PF 3 completed José Antonio Cord[place] [facility] 01/17/2024 10:52:28 COVID-19, mRNA, LNP-S, PF, 30 mcg/0.3 mL dose 1 completed José Antonio Cord[place] [facility] 01/17/2024 10:52:28 COVID-19, mRNA, LNP-S, PF, 30 mcg/0.3 mL dose 1 completed José Antonio Cord[place] [facility] 01/17/2024 10:52:28 COVID-19, mRNA, LNP-S, PF, 30 mcg/0.3 mL dose 1 completed José Antonio Cord[place] [facility] 01/17/2024 10:52:28 pneumococcal polysaccharide PPV23 0 completed José Antonio Cord[place] [facility] 01/17/2024 10:52:28 Influenza, split virus, trivalent, preservative 5 completed José Antonio Cord[place] [facility] 01/17/2024 10:52:28 Influenza, split virus, trivalent, preservative 6 completed José Antonio Cord[place] [facility] 01/17/2024 10:52:28 Influenza, split virus, quadrivalent, PF 0 completed José Antonio Cord[place] [facility] 01/17/2024 10:52:28 Influenza, high-dose, trivalent, PF 4 completed SINCERE Omer Attn: Accounting,[address] [place], [address], [place] [facility] 01/29/2024 22:29:58 Past Encounters Encounter ID Performer Location Encounter Start Date Encounter Closed Date Diagnosis/Indication Diagnosis SNOMED-CT Code Diagnosis ICD10 Code Diagnosis Note [id number] Marquis Virk MD [facility] [employer] [address] [place] [address] 07/20/2023 10:48:19 07/20/2023 11:41:07 Hyperlipidemia 59465744 E78.5 stable. refill statin therapy. check fasting lipids. Benign ess ential hypertension 4995230 I10 stable on meds. refilled. Insomnia 299723101 G47.0 0 pt is very stable on zolpidem 10mg qhs takes half tab qhs. Long-term drug therapy 798185707 Z79.899 all routine labs due Chronic di arrhea of unknown origin 68041056 K52.9 Has been for some years but since Mar 2023 it has just gotten so much worse. refer for u/s raphael newton check stool cultures and celiac screening and check for EPI Generalize d anxiety disorder 39756187 F41.1 stable refill lexapro 10mg daily. Osteoporosis 53769904 M8 1.0 DEXA 2022 , refill actonel 150mg one monthly. Acid reflux 773578867 K2 1.9 refill on famotidine 40mg daily. Screening mammography 24 558428 Z12.31 mammogram due [id number] Marquis Virk MD [facility] [employer] [address] [place] [address] 01/18/2024 10:42:02 01/18/2024 12:04:10 Body mass index 25-29 - overweight 272880996 Z68.28 BMI is 28.7 Overweight 985589315 E66 .3 Hyperlipidemia 32848957 E78.5 stable. on lower dose statin therapy. Due for updated fasting lipid panel Benign ess ential hypertension 0234795 I10 stable on meds. Generalize d anxiety disorder 54828687 F41.1 stable on lexapro 10mg daily. Osteoporosis 96796884 M8 1.0 DEXA 2022 , on actonel 150mg one monthly. Insomnia 616491656 G47.0 0 pt is very stable on zolpidem 10mg qhs takes half tab qhs. Acid reflux 740849643 K2 1.9 on famotidine 40mg daily. Stable with no complaints Chronic di arrhea of unknown origin 34226761 K52.9 Has been for some years but since Mar 2023 . ? colitis of some sort from GI. She had xifaxan abx x 2 rounds and now budesonide caps. she is almost completed on that course. Long-term drug therapy 895199119 Z79.899 BMP and LFT panels ordered Anemia 601495984 D64.9 CBC and iron studies ordered with history of anemia Lower urin selwyn tract symptoms 888003070 R39.9 Check urine with culture for frequent lower urinary tract symptoms Administra tion of influenza vaccine 70309048 Z23 Flu shot given in the office today [id number] Marquis Virk MD [facility]ag Mistry [address] [place] [address] 07/25/2024 10:50:33 07/25/2024 12:13:21 Body mass index 25-29 - overweight 261210409 Z68.28 BMI is 28.3 Lymphocytic colitis 1187 121323 K52.832 currently on steroids again for flare up. Benign ess ential hypertension 0871992 I10 stable on meds. Hyperlipidemia 99348944 E78.5 stable. on lower dose statin therapy. Due for updated fasting lipid panel Acid reflux 693450129 K2 1.9 on famotidine 40mg daily. Stable with no complaints Generalize d anxiety disorder 32283451 F41.1 stable on lexapro 10mg daily. Osteoporosis 54947358 M8 1.0 DEXA 2022 , on actonel 150mg one monthly. Insomnia 610216768 G47.0 0 pt is very stable on zolpidem 10mg qhs takes half tab qhs. Chronic di arrhea of unknown origin 77031175 K52.9 Anemia 159895083 D64.9 CBC and iron studies ordered with history of anemia Lower urin selwyn tract symptoms 081870576 R39.9 Check urine with culture for frequent lower urinary tract symptoms Overweight 190514291 E66 .3 Long-term drug therapy 382223858 Z79.899 BMP and LFT panels ordered Left lower quadrant pain 187507057 R10.32 Health Concerns Section Related Observation LastModified by Organization Detai ls LastModified Time None Recorded Concern Status LastModified by Organization Details LastModified Time None Recorded Advance Directives Directive Y: Payers Encounter Date Sequence Insurance Name Policy Number Policy Adair Covered Member ID Adair Member ID Guarantor Name 07/20/2023 1 [place] Afia Villatoro [id number] Afia Villatoro 01/18/2024 1 [place] Af[place] Villator[place] [id number] Afia Villatoro 01/18/2024 2 [email or web address] (MEDICARE SUPPLEMENT) Afia Villatoro [id number] Afia Villatoro Notes Date Note Type Note Provider Name and Address Organization Details Recorded Time 07/20/19 text/htm l Anxiety/DepressionReported bypatient.Notes:stable on lexapro 10mg daily.DiarrheaReported bypatient.Quality:worsening Severity:moderate Duration:has had this diarrhea for years. Onset/Timin-10 times a day;worse with meals(within 30 min. of eating anything.) Context:no one else with similar symptoms; has had a colonoscopy (September 2022; DR. Hopper. scope was all clear.) Alleviating Factors:imodium; OTC medication; fiber tablets are not helping at all. Aggravating Factors:eating Associated Symptoms:abdominal pain; hx of diverticulosis.HyperlipidemiaRe ported bypatient.Notes:stable on low dose statin therapyHypertensionReported bypatient.Notes:stable on amlodipine 10mg and lisinopril 20mg daily.InsomniaReported bypatient.Notes:taking ambien 10mg qhs SINCERE Omer Attn: Accounting,[address] [place], [address], [facility] 07/27/2023 08:36:05 01/18/20 text/htm l Anxiety/DepressionReported bypatient.Notes:stable on lexapro 10mg daily.DiarrheaReported bypatient.Quality:worsening Severity:moderate Duration:has had this diarrhea for years. Onset/Timin-10 times a day;worse with meals(within 30 min. of eating anything.) Context:no one else with similar symptoms; has had a colonoscopy (September 2022; DR. Hopper. scope was all clear.) Alleviating Factors:imodium; OTC medication Aggravating Factors:eating Associated Symptoms:hx of diverticulosis.HyperlipidemiaRe ported bypatient.Notes:stable on low dose statin therapyHypertensionReported bypatient.Notes:stable on amlodipine 10mg and lisinopril 20mg daily.InsomniaReported bypatient.Notes:taking ambien 10mg qhsReflux/GERDReported bypatient.Notes:Patient is on famotidine 40 mg daily for acid reflux management and is stable. SINCERE Omer Attn: Accounting,[address], [place], [address], [facility] 01/29/2024 22:31:24 OBGyn Episode No OBEpisode recorded.
--- OUTSIDE RECORDS SUMMARY | 2024-07-26 16:32 | XMS_ITS | Clinical Summary ---
Author Organization [facility] Appinions Address [address] [place] [address] Care Team Providers Care Mica Miner Blasting Name Role Phone Naima Velarde LURDES-SYSTEM SOFTWARE PROGRAMMER Primary Care Provider + Source Comments [facility],non-owned Affiliates and Associated Physician Practices is amultiple site organization consisting of ambulatory clinics and hospital sitesin [place], [place], [place] and [place]. This disclosure is being madepursuant to the Care Everywhere program and may not contain all information available regarding this patient. Last updated 17.[facility] Allergies Active Allergy Reactions Criticality Noted Date Comments Sulfa Drugs Other 10/23/2019 Sulfamethoxazole W-Trimethoprim Other Low 10/31/2018 Pt called in to report that her PCP just gave her this medication for a UTI and that she does have an allergy to it. She reports body aches and generalized discomfort. Asked me to add it back to her list of allergies. Medications * Be aware that medications may not be up to date on this document. Alwaysverify current medications with the patient. lisinopril (PRINIVIL; ZESTRIL) 10 MG tablet Take 1 (one) tablet by mouth once daily Active ibandronate (BONIVA) 150 MG tablet Take 1 (one) tablet by mouth every 30 days Active zolpidem (AMBIEN) 10 MG tablet Take 1 (one) tablet by mouth nightly as needed Active escitalopram (LEXAPRO) 10 MG tablet Take 1 (one) tablet by mouth once daily Active amLODIPine (NORVASC) 10 MG tablet Take 1 (one) tablet by mouth once daily 0 Active budesonide (ENTOCORT EC) 3 MG capsule Take 1 (one) capsule by mouth once daily 0 Active atorvastatin (Lipitor) 10 MG tablet Take 1 (one) tablet by mouth at bedtime 3 Active famotidine (Pepcid) 40 MG tablet Take 1 (one) tablet by mouth once daily 3 Active scopolamine (Transderm-Scop ) 1 MG patch Apply 1 (one) patch to skin every 72 hours as needed for Nausea/Vomitin g or Dizziness 3 Active dicyclomine (Bentyl) 20 MG tablet 3 Active Active Problems Problem Noted Date Diagnosed Date Knee stiffness, right 09/04/2019 Osteoarthritis of right knee 08/15/2019 Abdominal pain 05/22/2019 Anxiety 05/22/2019 Calculus of kidney 05/22/2019 Encntr for general adult medical exam w/o abnorm al findings 05/22/2019 Hyperlipidemia 05/22/2019 Hypertensive disorder 05/22/2019 Insomnia 05/22/2019 Lipoma of right lower extremity 05/22/2019 Motion sickness 05/22/2019 Soft tissue disorder, unspecified 05/22/2019 Skin neoplasm 05/22/2019 Psychosexual dysfunction 05/22/2019 Flexion contracture of knee, right 04/11/2019 Pain in right knee 11/23/2018 Fall 09/07/2018 Body mass index (bmi) 27.0-27.9, adult 7 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 (general) (routine) w/o abn findings 10/29/2015 Menopausal symptom 08/21/2014 Leukocytosis 07/19/2013 Neoplasm of uncertain behavior of skin 3 Vaginitis and vulvovaginitis 10/02/2012 Other depressive disorder 05/27/2011 Osteoporosis 05/27/2011 Encounter for routine gynecological examination 04/08/2011 Routine general medical exam ination at a health care facility 04/08/2011 Screening for malignant neoplasm of the rectum 0 04/08/2011 Screening for malignant neoplasm of cervix 04/08 Other malaise and fatigue 04/08/2011 S/P right knee surgery Resolved Problems Problem Noted Date Diagnosed Date Resolved Date Urinary tract infection 10/25/201205/26 Immunizations Immunization Administration Dates Next Due INFLUENZA VACCINE, TRIV. (AF LURIA, FLUZONE TRIVALENT; 6MO+) (IIV3) 12/27/2015,11/26/2014 FLU VACCINE QUAD IIV4 SPLIT 0.25 ML IM 9 PNEUMOCOCCAL PPSV23 04/05/2019 Social History Tobacco Use Types Packs/Day Years Used Date Smoking Tobacco: Never Smokeless Tobacco: Never Tobacco Cessation:Counseling Given: Not Answered Alcohol Use Standard Drinks/Week Comments No 0 (1 standard drink = 0.6 oz pur e alcohol) Comments No Sex and Gender Information Value Date Recorded Sex Assigned at Female 03/06/2022 7:48 AM GUIDANCE SERVICES COORDINATOR Legal Sex Female 4:17 PM CDT Gender Identity Female 03/06/2022 7:48 AM GUIDANCE SERVICES COORDINATOR Sexual Orientation Straight 03/06/2022 7: 48 AM GUIDANCE SERVICES COORDINATOR Last Filed Vital Signs Vital Sign Reading Time Taken Comments Blood Pressure 119/75 01/26/2023 1:02 PM CDT Pulse 67 01/26/2023 1:02 PM CDT Temperature 36.6 C (97.8 F) 09/05/2019 8:37 AM CDT Respiratory Rate 22 09/05/2019 10:4 2 AM CDT Oxygen Saturation 99% 01/26/2023 1:02 PM CDT Inhaled Oxygen Concentration 21% 09/05/2019 8 :37 AM CDT Weight 71.6 kg (157 lb 12.8 oz) 01/26/2023 1:02 PM CDT Height 152.4 cm (5') 01/26/2023 1:02 PM CDT Body Mass Index 30.82 01/26/2023 1:02 PM CDT Plan of Treatment Health Maintenance Due Date Last Done Comments BONE DENSITY TESTING 1955 COLOGUARD (AGES 45-75) - COLON CA SCREENING 1955 COLON MONITORING 1955 COLONOSCOPY - COLON CA SCREENING 1955 CT COLONOGRAPHY - COLON CA SCREENING 1955 Colorectal Cancer Screening 1955 FIT - COLON CA SCREENING 1955 FLEX SIG - COLON CA SCREENING 1955 MAMMOGRAM 1955 MEDICARE AWV 12 MONTHS 1955 Opioid Medication Agreement - Annual 1955 HEPATITIS C SCREENING 02/11/1973 DTAP/TDAP/TD VACCINES (1 - Tdap) 1974 ZOSTER VACCINE (1 of 2) 2005 Respiratory Syncytial Virus (RSV) Vaccine Pt: or over 60 yrs (1 - Risk 60-74 years 1-dose series) 2015 PNEUMOCOCCAL VACCINE 50+ (2 of 2 - PCV) 04/05/2020 04/05/2019 SCREENING FOR DIABETES 01/26/2023 09/07/2018 COVID-19 VACCINE ( - 2023- season) 2023 01/16/2021, 05/15/2020, 04/23/2020 DEPRESSION SCREENING 03/28/2024 INFLUENZA VACCINE (Season Ended) 2024 04/15/2022, 03/29/2019, 01/15/2019, Additional history exists HEPATITIS B VACCINE Aged Out No longe r eligible based on patient's age to complete this topic HIB VACCINE Aged Out No longer eligi ble based on patient's age to complete this topic HPV VACCINE Aged Out No longer eligi ble based on patient's age to complete this topic MENINGOCOCCAL (Group B) VACCINE SHARED DECISION-MAKING Aged Out No longer eligible based on patient's age to complete this topic MENINGOCOCCAL GROUPS A/C/Y/W VACCINE Aged Out No longer eligible based on patient's age to complete this topic Medical Devices Implanted Type Area Production Intern Device Identifier Shelf Expiration Date Model / Serial / Lot Screw 11x30 Sunni Adv Peek Implanted:Qty: 2 on 12/22/2018 by David Ibanez MD at [facility] Right: Knee [employer] 07/26/2019 [id number] / / [id number] Description:monse miagro advance interference screw Screw Intfr 20mm 7mm Unv Hex Wdg Implanted:Qty: 1 on 12/22/2018 by David Ibanez MD at [facility] Right: Knee [employer] 02/01/2023 [id number] / / [id number] Description:monse ACL INTERFERENCE SCREW--12/26 LG [place] Sut Swivelock Tigerwire Arthx Implanted:Qty: 1 on 12/22/2018 by David Ibanez MD at [facility] Right: Knee [employer] 06/25/2020 [id number]- 2 / / [id number] Description:monse suture anchor, biocomposite swivelock, double loaded 4.75 x 22mm Knotilus [place] System Implant Loop 25mm Implanted:Qty: 1 on 12/22/2018 by David Ibanez MD at [facility] Right: Knee [employer] 06/07/2022 [id number] Description:MONSE CHARU KNOTILUS IMPLANT LOOP 25MM Screw Intfr Ti 20mm 8mm Acl Pcl Bhaskar Implanted:Qty: 1 on 12/22/2018 by David Ibanez MD at [facility] Right: Knee [employer] 10/25/2021 AR-[id number] / / [id number] Description:MONSE SCREW, CANNULATED INTERFERENCE, WITH DISPOSABLE SHEATH 7 X 20MM Wshr 14mm Orth Ti Canc Screw Strl Implanted:Qty: 1 on 12/22/2018 by David Ibanez MD at [facility] Right: Knee [employer] 01/25/2023 AR-[id number] / / [id number] Description:SERGIO ABARCA Post Fx 35mm 4.5mm Lopro Kn Ecort Ti Implanted:Qty: 1 on 12/22/2018 by David Ibanez MD at [facility] Right: Knee [employer] 01/25/2023 AR-1365-35 / / [id number] Description:MONSE BI-CORTICAL POST Post Fx 37.5mm 4.5mm Lopro Kn Bcort Ti Implanted:Qty: 1 on 12/22/2018 by David Ibanez MD at [facility] Right: Knee [employer] 01/25/2023 [id number] / / [id number] Description:bi-cortical post Kit Arthsc Fx Internalbrace Fibertape Implanted:Qty: 1 on 12/22/2018 by David Ibanez MD at [facility] Right: Knee [employer] 09/24/2020 AR-5511-CP / [id number] / Description:MONSE IMPLANT SYSTEM, INTERNAL BRACE KNEE LIGAMENT AUGMENTATION REPAIR Graft Tissue At [facility] Irradiate Implanted:Qty: 1 on 12/22/2018 by David Ibanez MD at [facility] Right: Knee [employer] 05/06/2023 [id number] / [id number] / [id number] Description:MONSE P/C:[id number] ID:[id number] Graft [employer] At [facility] Irradiate Implanted:Qty: 1 on 12/22/2018 by David Ibanez MD at [facility] Right: Knee [employer] 04/13/2023 [id number] / / [id number] Description:MONSE ACHILLES TENDON FROZEN Graft Bone Ptlr Lgnjt [facility] Irradiate Implanted:Qty: 1 on 12/22/2018 by David Ibanez MD at [facility] Right: Knee [employer] 09/22/2023 [id number] / / [id number] Description:monse patellar ligament preshaped Explanted Type Area Production Intern Device Identifier Shelf Expiration Date Model / Serial / Lot Pin Hlf 35mm 5mm Jtx Lng Ti Ntrd Extfix Implanted:Qty: 2 on 09/20/2018 by David Ibanez MD at [facility] Explanted:Qty: 2 on 11/01/2018 by David Ibanez MD at [facility] Right: Leg [employer] [id number] / / Pin Hlf 35mm 5mm Jtx Shrt Ti Ntrd Extfix Implanted:Qty: 2 on 09/20/2018 by David Ibanez MD at [facility] Explanted:Qty: 2 on 11/01/2018 by David Ibanez MD at [facility] Right: Leg [employer] [id number] / / Post Extfix Jtx 4mmx6.25mm Frdm Implanted:Qty: 5 on 09/20/2018 by David Ibanez MD at [facility] Explanted:Qty: 5 on 11/01/2018 by David Ibanez MD at [facility] Right: Leg [employer] [id number] / / Description:bar to bar clamp Clamp Extfix Jtx Frdm 10.5-5mm Bar To Implanted:Qty: 5 on 09/20/2018 by David Ibanez MD at [facility] Explanted:Qty: 5 on 11/01/2018 by David Ibanez MD at [facility] Right: Leg [employer] [id number] / / Description:pin to bar clamp Bar Extfix 150mm Jtx Dfbr Nonster Disp Implanted:Qty: 2 on 09/20/2018 by David Ibanez MD at [facility] Explanted:Qty: 2 on 11/01/2018 by David Ibanez MD at [facility] Right: Leg [employer] [id number] / / Description:bar 150 Bar Extfix 200mm Jtx Cfbr Nonster Disp Implanted:Qty: 2 on 09/20/2018 by David Ibanez MD at [facility] Explanted:Qty: 2 on 11/01/2018 by David Ibanez MD at [facility] Right: Leg [employer] [id number] / / Description:bar 200 Screw 10x30 Sunni Adv Peek Implanted:Qty: 1 Explanted:Qty: 1 on 12/22/2018 by David Ibanez MD at [facility] Right: Knee [employer] 06/26/2019 [id number] / / [id number] Description:JY MEDOS INTERNA TIONAL SARL SUNNI ADVANCE INTERFERENCE SCREW Screw Intfr Ti 20mm 7mm Acl Pcl Bhaskar Implanted:Qty: 1 Explanted:Qty: 1 on 12/22/2018 by David Ibanez MD at [facility] Right: Knee [employer] 09/24/2022 AR-[id number] / / [id number] Description:JY SCREW, CANNULATED INTERFERENCE, WITH DISPOSABLE SHEATH Procedures Procedure Name Priority Date/Time Associated Diagnosis Comments BASIC METABOLIC PANEL (CALCIUM TOTAL) STAT 09/07/2018 7:32 PM CDT from Last 3 Months or Most Recently Relevant to Health Maintenance Results * (ABNORMAL) BASIC METABOLIC PANEL (CALCIUM TOTAL) (09/07/2018 7:32 PM CDT) BUN 10 7 - 26 mg/dL 09/07/2018 8:10 PM [facility] Creatinine 0.6 0.6 - 1.2 mg/dL 09/07/2018 8:10 PM [facility] Sodium 138 136 - 145 mmol/L 09/07/2018 8:10 PM [facility] Potassium 3.7 3.5 - 4.5 mmol/L 09/07/2018 8:10 PM [facility] Chloride 105 98 - 107 mmol/L 09/07/2018 8:10 PM [facility] CO2 23 22 - 29 mmol/L 09/07/2018 8:10 PM [facility] Glucose 125(H) 70 - 115 mg/dL 09/07/2018 8:10 PM [facility] Calcium 8.9 8.4 - 10.2 mg/dL 09/07/2018 8:10 PM [facility] Anion Gap 14 8 - 18 09/07/2018 8:10 PM [facility] BUN/Creatinine Ratio 17 7 - 23 09/07/2018 8:10 PM [facility] Osmolality Calculated 287 270 - 300 mOsm/kg 09/07/2018 8:10 PM [facility] eGFR >60 >60 mL/min/1.7 3 m2 09/07/2018 8:10 PM [facility] Blood BLOOD SPECIMEN / Unknown Venipuncture / Unknown 09/07/2018 7:32 PM CDT 09/07/2018 7:41 PM CDT Fidel Pulido MD LAB - CHEMISTRY ORDERABLES [place] [address], [facility] [phone] from Last 3 Months or Most Recently Relevant to Health Maintenance Insurance MEDICARE [facility] MEDICARE MEDICARE Advance Directives * Full Code (Latest Code Status on File) Date Activated Date Inactivated Comments 04/11/2019 11:18 AM 04/11/2019 4:52 PM * Full Code Date Activated Date Inactivated Comments 09/08/2018 12:23 AM 09/10/2018 5:15 PM Care Teams Mica Miner Blasting Relationship Specialty Start Date End Date Naima Velarde APRN-CNP [address] [place] [address] [place] [address] PCP - General 09/19/18
--- OUTSIDE RECORDS SUMMARY | 2024-07-26 16:32 | XMS_ITS | Encounter Summary ---
Author Organization [facility] Address [address] [place] [address] Care Team Providers Care Clinical Laboratory Technician Name Role Phone Naima Velarde VARNISH THINNER-TEST CONSULTANT Primary Care Provider + Reason for Visit * Reason Onset Date Comments Question 10/10/2018 Encounter Details Date Type Department Care Team (Late st Contact Info) Description 10/10/2018 Telephone [facility] [address] [place] [address] David Ibanez MD [address] [phone] Question Social History Tobacco Use Types Packs/Day Years Used Date Smoking Tobacco: Never Smokeless Tobacco: Never Alcohol Use Standard Drinks/Week Comments No 0 (1 standard drink = 0.6 oz pur e alcohol) Comments No Sex and Gender Information Value Date Recorded Sex Assigned at Female 03/06/2022 7:48 AM ASSEMBLER PLASTIC BOAT Legal Sex Female 4:17 PM CDT Gender Identity Female 03/06/2022 7:48 AM ASSEMBLER PLASTIC BOAT Sexual Orientation Straight 03/06/2022 7: 48 AM ASSEMBLER PLASTIC BOAT documented as of this encounter Functional Status * Is person deaf or have serious hearing difficulty? Answer Date of Assessment Author No 09/08/2018 12:02 AM Reagan Francisco RN * Is person blind or have serious difficulty seeing? Answer Date of Assessment Author No 09/08/2018 12:02 AM Reagan Francisco RN * Does person have serious difficulty walking/climbing stairs? Answer Date of Assessment Author No 09/08/2018 12:02 AM CDT Reagan Johnson RN * Does person have difficulty dressing/bathing? Answer Date of Assessment Author No 09/08/2018 12:02 AM CDT Reagan Johnson RN * Does person have difficulty doing errands alone? Answer Date of Assessment Author No 09/08/2018 12:02 AM MARKUST Reagan Johnson RN documented as of this encounter Mental Status * Does person have difficulty concentrating/remembering/making decisions? Answer Entry Date Author No 09/08/2018 12:02 AM CDT Reagan Johnson RN documented in this encounter Miscellaneous Notes * Telephone Encounter - Alix Huang - 10/10/2018 10:13 AM CDT external fixator to right leg pain to right leg, upper part has pain with movent, burning type pelaez.No redness, half saline and peroxide. If there's anything different to do please let Shanna know CB # [phone]. documented in this encounter Plan of Treatment Not on file documented as of this encounter Visit Diagnoses Not on filedocumented in this encounter Care Teams Clinical Laboratory Technician Relationship Specialty Start Date End Date Naima Velarde APRN-SRINIVASAN [address] [phone] PCP - General 09/19/18 documented as of this encounter
[2024-07-26 16:52] LABS: Estimated Glomerular Filt Rate > 60
== END 2024-07-26 16:28 | disposition home or self-care (01) ==
PROVIDERS: PCP Physician Assistant; Visit Provider Physician Assistant
DX: R10.32 Left lower quadrant pain (principal)
CPT/HCPCS: 74177; Q9967

== ENCOUNTER 2025-01-15 11:05 | Outpatient (CLI) | payer MEDICARE, OTHER, SELFPAY ==
--- NOTE | ~2025-01-15 | DEXA_ITS ---
Bone Density Report Name: CAIT JOVEL Age: 69 Sex: Female Ethnicity: White Date of : 1955 Indication: osteopenia; monitoring treatment; parental hip fracture; height loss; prior fracture; hysterectomy; Referring Provider: HENRY, HUGO Study: Bone densitometry was performed. Exam Date: January 15, 2025 Accession number: [id number] Bone Density: Region BMD T-score Z-score Classification AP Spine(L1-L4) 0.796 -2.3 -0.2 Osteopenia Femoral Neck (Left) 0.621 -2.1 -0.3 Osteopenia Total Hip (Left) 0.747 -1.6 -0.1 Osteopenia Femoral Neck (Right) 0.602 -2.2 -0.4 Osteopenia Total Hip (Right) 0.634 -2.5 -1.0 Osteoporosis Total Hip Mean 0.691 -2.1 -0.6 Osteopenia World Health Organization criteria for BMD impression classify patients as: Normal (T-score at or above -1.0), Osteopenia (T-score between -1.0 and -2.5), or Osteoporosis (T-score at or below -2.5). 10-year Fracture Risk: FRAX not reported because: Some T-score for Spine Total or Hip Total or Femoral Neck at or below -2.5 Treated for osteoporosis Previous Exams: -- Region Exam Age BMD T-score BMD Change BMD Change Date g/cm2 vs Baseline vs Previous -- AP Spine (L1-L4) 01/15/2025 69 0.796 -2.3 6.6%* 1.4% 10/29/2022 67 0.785 -2.4 5.1%* 2.5% 11/07/2019 64 0.766 -2.6 2.6% 1.7% 10/17/2017 62 0.753 -2.7 0.8% -1.0% 10/13/2015 60 0.760 -2.6 1.8% 0.1% 05/17/2013 58 0.760 -2.6 1.8% -2.0% 04/22/2011 56 0.775 -2.5 3.8%* 13.4%* 02/18/2010 55 0.683 -3.3 -8.5%* -8.5%* 04/19/2007 52 0.747 -2.7 Total Hip(Left) 01/15/2025 69 0.747 -1.6 -4.7%* -1.5% 10/29/2022 67 0.759 -1.5 -3.3% -2.1% 11/07/2019 64 0.775 -1.4 -1.2% 0.0% 10/17/2017 62 0.775 -1.4 -1.3% -1.9% 10/13/2015 60 0.789 -1.3 0.6% -1.3% 05/17/2013 58 0.799 -1.2 1.9% -3.9%* 04/22/2011 56 0.832 -0.9 6.0%* 7.0%* 02/18/2010 55 0.777 -1.3 -0.9% -0.9% 04/19/2007 52 0.785 -1.3 Total Hip(Right) 01/15/2025 69 0.634 -2.5 -12.8%* -4.4%* 10/29/2022 67 0.663 -2.3 -8.7%* -2.1% 11/07/2019 64 0.678 -2.2 -6.8%* -7.6%* 10/17/2017 62 0.734 -1.7 0.9% -1.3% 10/13/2015 60 0.744 -1.6 2.3% -2.8% 05/17/2013 58 0.765 -1.5 5.2%* -0.7% 04/22/2011 56 0.771 -1.4 6.0%* 2.4% 02/18/2010 55 0.753 -1.6 3.5% 3.5% 04/19/2007 52 0.727 -1.8 -- *Denotes significance at 95% confidence level, LSC for AP Spine = 0.022 g/cm2, LSC for Total Hip = 0.027 g/cm2 Clinical Information Provided by Patient: Has had a low trauma fracture Parent has had a hip fracture Is being treated for osteoporosis Has used the following medications: Boniva (i.e. ibandronate), Vitamin D, Calcium Has the following medical conditions: Hysterectomy Patient maximum height was 62 Menopause Age: 51 Does not regularly consume dairy products Drinks caffeinated beverages Onset of menses at age 14 Number of children 3 Impression: The patient has established osteoporosis, based on the Right Total Hip T-score and the existence of a prior fracture. The patient has risk factors, including: parental hip fracture, previous fracture. The BMD for the Total Hip(Right) decreased, changing by -4.4% since the last DXA exam. Discussion: SIGNIFICANT BONE LOSS OBSERVED. Adherence to therapy (including calcium and vitamin D intake) should be assessed. If compliance is not a factor, review management and exclusion of secondary causes of bone loss. It is important to ask patients whether they are taking their medications and to encourage continued and appropriate compliance with their osteoporosis therapies to reduce fracture risk. It is also important to review their risk factors and encourage appropriate calcium and vitamin D intakes, exercise, fall prevention and other lifestyle measures. Follow-Up: Consider a repeat BMD and Vertebral Fracture Assessment (VFA) exam in 2 years or sooner if medically necessary, to reassess this patient's status. Reported by: LONNY on 01/15/2025 11:28:00 AM. Reviewed, dictated and finalized at location A.
== END 2025-01-15 11:06 | disposition home or self-care (01) ==
LOC: MICIMG 11:07
PROVIDERS: PCP Physician Assistant; Visit Provider Physician Assistant
DX: M85.89 Other specified disorders of bone density and structure, multiple sites (principal); M81.0 Age-related osteoporosis without current pathological fracture
CPT/HCPCS: 77080